=== PATIENT | female | born 1985 | race Caucasian/White ===

== ENCOUNTER 2021-01-03 12:50 | Outpatient (REF) | payer OTHER, SELFPAY ==
[2021-01-03 13:55] LABS: Basophils Percent Auto 0.2 % (0-2); Eosinophils Absolute Auto 0.1 X10*3/uL (0.0-0.4); Eosinophils Percent Auto 1.4 % (0-4); Hematocrit 37.8 % (37-47); Hemoglobin 12.5 g/dl (12.0-16.0); Imm Gran Abs Auto 0.01 X10*3/uL (0.00-0.03); Imm Gran Pct Auto 0.2 % (0.0-0.4); Lymphocytes Percent Auto 36.4 % (20-40); MANUAL DIFF FLAG NO; Mean Corpuscular HGB Conc 33.1 g/dl (31.0-35.0); Mean Corpuscular Hemoglobin 29.2 pg (27.0-33.0); Mean Corpuscular Volume 88.3 fL (80-98); Mean Platelet Volume 10.6 fL (9.4-12.3); Monocytes Absolute Auto 0.8 X10*3/uL (0.1-1.2); Monocytes Percent Auto 13.8 % (2-11); Neutrophils Absolute Auto 2.7 X10*3/uL (2.0-8.3); Platelet Count 281 X10*3/uL (160-400); Red Blood Count 4.28 X10*6/uL (4.20-5.50); Red Cell Distribution Width 11.9 % (11.0-16.0); White Blood Count 5.6 X10*3/uL (4.8-10.8)
[2021-01-03 14:30] LABS: Alanine Aminotransferase 56 U/L (0-31); Albumin Level 3.9 g/dL (3.5-5.0); Alkaline Phosphatase 77 U/L (39-117); Anion Gap 14 (12-20); Aspartate Amino Transferase 49 U/L (5-31); Bilirubin Total 0.4 mg/dL (0.0-1.0); Blood Urea Nitrogen 10 mg/dL (9-16); Calcium 9.1 mg/dL (8.4-10.2); Carbon Dioxide 20 mmol/L (22-29); Chloride 107 mmol/L (96-108); Cholesterol 210 mg/dL; Estimated Glomerular Filt Rate > 60; Glucose Fasting 90 mg/dL (60-99); HDL Cholesterol 59 mg/dL; LDL Cholesterol Calculated 111 mg/dl; Potassium 4.5 mmol/L (3.3-5.1); Sodium 136 mmol/L (135-145); Total Protein 7.5 g/dL (6.5-8.0); Triglycerides 203 mg/dL
[2021-01-04 17:02] LABS: HCV RNA PCR Qn 249000 IU/mL (NOT DETECTED)
[2021-01-07 18:12] LABS: HCV Genotype LiPA 1a
== END 2021-01-03 12:51 | disposition home or self-care (01) ==
LOC: HO.LAB 12:50
PROVIDERS: PCP Internal Medicine; Visit Provider Internal Medicine
DX: Z00.00 Encounter for general adult medical examination without abnormal findings (principal); B19.20 Unspecified viral hepatitis C without hepatic coma; F32.89 Other specified depressive episodes; Z72.0 Tobacco use; Z79.891 Long term (current) use of opiate analgesic
CPT/HCPCS: 36415; 80053; 80061; 85025; 87522; 87902

== ENCOUNTER 2021-04-16 19:29 | Emergency (ER) | payer OTHER, SELFPAY | END 2021-04-16 20:17 | disposition left against medical advice (07) | PROVIDERS: Emergency Provider Emergency Medicine | DX: S61.419A Laceration without foreign body of unspecified hand, initial encounter (principal); X58.XXXA Exposure to other specified factors, initial encounter; Y93.9 Activity, unspecified; Y92.9 Unspecified place or not applicable; Y99.9 Unspecified external cause status ==

== ENCOUNTER 2023-11-29 01:22 | Inpatient (IN) | payer OTHER, SELFPAY ==
--- NOTE | ~2023-11-29 | CT_ITS ---
EXAMINATION: CT ABDOMEN AND PELVIS WITHOUT CONTRAST CLINICAL INFORMATION: Question contraband COMPARISON: None available. TECHNIQUE: Multidetector volumetric imaging was performed from the superior aspect of the liver through the pubic symphysis. Sagittal and coronal reformatted images were obtained on the technologist's workstation. This CT examination was performed using dose optimization techniques as appropriate, variously including the following: *Automated exposure control *Adjustment of mA and/or kV according to patient size (this includes techniques or standardized protocols for targeted exams where dose is matched to indication/reason for exam; i.e. extremities or head) *Use of iterative reconstruction technique DLP: 365 mGy-cm FINDINGS: LUNG BASES: The visualized lung bases are unremarkable. LIVER, GALLBLADDER, AND BILIARY TREE: The liver is normal in size, shape, and attenuation. No focal hepatic lesion or biliary ductal dilatation is present. The gallbladder is unremarkable with no evidence of radiopaque gallstones, gallbladder wall thickening, or obvious pericholecystic inflammatory changes. PANCREAS: Unremarkable. SPLEEN: Unremarkable. ADRENAL GLANDS: Unremarkable. KIDNEYS AND URETERS: The kidneys are normal in size, shape, and attenuation. No hydronephrosis, hydroureter, or calculi seen. No perinephric stranding. BLADDER: Unremarkable. GASTROINTESTINAL TRACT: Stomach is unremarkable and filled with stomach contents. The small bowel are unremarkable. The appendix is unremarkable. Large amount of retained stool seen throughout the entire colon. No bowel wall thickening or inflammatory stranding. No radiopaque foreign bodies seen within the colon ABDOMINAL WALL: No significant hernia is appreciated. LYMPH NODES: Normal. VASCULAR: Unremarkable. PELVIC VISCERA: The uterus and adnexa are unremarkable. OSSEOUS STRUCTURES: Unremarkable. CT/CT abdomen pelvis wo IV con IMPRESSION: 1. No acute process. No radiopaque foreign bodies seen within the colon. 2. Large amount of retained stool seen throughout the colon.
[2023-11-29 02:59] VITALS: BP 110/76; BP 112/85; PULSE 73; PULSE 81; RESP 16; TEMP 36.7; O2SAT 98; O2SAT 99; BMI 21.2
--- OUTSIDE RECORDS SUMMARY | 2023-11-29 03:03 | XMS_ITS | Continuity of Care Document ---
Author Organization [facility] Address [address] [place] [address]- Care Team Providers Care Africana Studies Professor Name Role Phone Not on Staff, PCP Primary Care Physician Unavail able Encounter [facility] [place] Date(s): 12/21/19 - 02/13/[address] [address]- [facility] Attending Physician: Not on Staff, Attending MD Allergies, Adverse Reactions, Alerts Substance Reaction Severity Status NKA Active Immunizations Given and Recorded Vaccine Date Status Refusal Reason tetanus/diphtheria/pertussis, acel(Tdap) 02/13/10 Given Medications Flagyl 500 mg oral tablet 1 tablet = 500 mg, By Mouth, 2 times a day, do not drink alcohol, # 14 tablet, 0 Refills, Maintenance, 11/27/19 17:04:00 EDT, [id number], 160.02, cm, 11/20/19 15:30:00 EDT, Height, 50.4, kg, 11/20/19 15:30:00 EDT, Dry Weight Start Date: 11/27/19 Stop Date: 12/04/19 Status: Ordered Methadone = 90 mg, By Mouth, Daily, 0 Refills, Maintenance, 11/04/19 14:57:00 EDT, Partial fill upon patient request Start Date: 11/04/19 Status: Ordered Nicoderm C-Q Clear 14 mg/24 hr transdermal film, extended release 1 patch, Topically, Daily, # 30 patch, 0 Refills, Maintenance, 11/20/19 16:36:00 EDT, Patch, [id number], 160.02, cm, 11/20/19 15:30:00 EDT, Height, 50.4, kg, 11/20/19 15:30:00 EDT, Dry Weight Start Date: 11/20/19 Status: Ordered Multivitamins with Vitamin B Complex, Vitamin C, Minerals and L- Methylfolate oral capsule 1 capsule, By Mouth, Daily, # 90 capsule, 3 Refills, Maintenance, 11/20/19 16:35:00 EDT, Capsule, [id number], 1 capsule By Mouth Daily, 160.02, cm, 11/20/19 15:30:00 EDT, Height, 50.4, kg, 11/20/19 15:30:00 EDT, Dry Weight Start Date: 11/20/19 Status: Ordered Plus Iron oral tablet 1 tablet, By Mouth, Daily, # 30 tablet, 11 Refills, Maintenance, 10/20/19 16:56:00 EDT, Tablet, [id number], 1 tablet By Mouth Daily Start Date: 10/20/19 Status: Ordered terconazole topical 0.4% cream See Instructions, 1 application Vaginally at night, # 45 Gm, 1 Refills, Maintenance, for 7 days, 12/04/19 17:27:00 EDT, [id number], 1 application Vaginally at night, 160.02, cm, 11/20/19 15:30:00 EDT, Height, 50.4, kg, 11/20/19 15:30:00 EDT, D... Start Date: 12/04/19 Status: Ordered Wellbutrin XL 150 mg/24 hours oral tablet, extended release 1 tablet = 150 mg, By Mouth, Every 24 hours, # 30 tablet, 0 Refills, Maintenance, 02/02/20 8:56:00 EDT, [id number], 160.02, cm, 12/18/19 13:04:00 EDT, Height, 53.4, kg, 12/18/19 13:04:00 EDT,Dry Weight Start Date: 02/02/20 Status: Ordered Problem List Condition Effective Dates Status Health Status Inform ant Anxiety(Confirmed) Active History of depression(Confirmed) Active Hepatitis C antibody positiv e in blood(Confirmed) Active Methadone maintenance treatm ent affecting , antepartum(Confirmed) Active History of opioid abuse(Confirmed) Active Methadone dependence(Confirmed) Active Social History Social History Type Response Smoking Status 5-9 cigarettes (betw een 1/4 to 1/2 pack)/day in last 30 days; Tobacco user in household: No; Other: FOB smokes, both trying to cut down; entered on: 11/04/19 Sex
--- OUTSIDE RECORDS SUMMARY | 2023-11-29 03:03 | XMS_ITS | Continuity of Care Document ---
Author Organization [facility] Address [address] [place] [id number]- Care Team Providers Care Photogrammetric Stereo Compiler Name Role Phone Not on Staff, PCP Primary Care Physician Unavail able Encounter [facility] [place] Date(s): 03/14/20 - 06/15/20 [facility] and [address] [address]- Attending Physician: Not on Staff, Attending MD Admitting Physician: Ronni Kirk MD Referring Physician: Crystal Farmer CNM Allergies, Adverse Reactions, Alerts Substance Reaction Severity Status NKA Active Immunizations Given and Recorded Vaccine Date Status Refusal Reason tetanus/diphtheria/pertussis, acel(Tdap) 1 03/30/20 Given tetanus/diphtheria/pertussis, acel(Tdap) 02/13/10 Given 1Result Comment: [facility] 33739-998-99 Medications buPROPion 150 mg/24 hours (XL) oral tablet, extended release See Instructions, PLEASE SEE ATTACHED FOR DETAILED DIRECTIONS, # 30 tablet, 0 Refills, Maintenance,[id number], 30, PLEASE SEE ATTACHED FOR DETAILED DIRECTIONS, 160, cm, 06/03/20 9:54:00 EST, Height, 57.6, kg, 05/03/20 22:11:00 EST, Dry Weight Start Date: 06/08/20 Status: Ordered buPROPion 300 mg/24 hours (XL) oral tablet, extended release 1 tablet, By Mouth, Daily, DO NOT CRUSH OR CHEW. TAKE WITH 150 MG FOR TOTAL OF 450 MG, # 30 tablet,0 Refills, Maintenance, 06/08/20 9:14:00 EST, [id number], 160, cm, 06/03/20 9:54:00 EST, Height, 57.6, kg, 05/03/20 22:11:00 EST, Dry Weight Start Date: 06/08/20 Status: Ordered Depo-Provera Contraceptive 150 mg/mL intramuscular suspension 1 mL = 150 mg, Intramuscular, Every 3 months, # 1 mL, 2 Refills, Maintenance, 05/17/20 14:23:00 EST, Suspension, [facility], Partial fill upon patient request if the prescription is for a schedule II opioid drug., 160, cm, 05/06/20 17... Start Date: 05/17/20 Status: Ordered FLUoxetine (Eqv-Prozac) 10 mg oral tablet = 20 mg, By Mouth, Daily, # 45 tablet, 0 Refills, Maintenance, 06/15/20 19:59:00 EST, [id number], 160, cm, 06/03/20 9:54:00 EST, Height, 57.6, kg, 05/03/20 22:11:00 EST, Dry Weight Start Date: 06/15/20 Status: Ordered Methadone = 155 mg, By Mouth, Daily, 0 Refills, Maintenance, 11/04/19 14:57:00 EDT, Partial fill upon patientrequest Start Date: 11/04/19 Status: Ordered Nicoderm C-Q Clear 14 mg/24 hr transdermal film, extended release 1 patch, Topically, Daily, # 30 patch, 0 Refills, Maintenance, 11/20/19 16:36:00 EDT, Patch, [facility][id number], 160.02, cm, 11/20/19 15:30:00 EDT, Height, 50.4, kg, 11/20/19 15:30:00 EDT, Dry Weight Start Date: 11/20/19 Status: Ordered Multivitamins with Vitamin B Complex, Vitamin C, Minerals and L- Methylfolate oral capsule 1 capsule, By Mouth, Daily, # 90 capsule, 3 Refills, Maintenance, 11/20/19 16:35:00 EDT, Capsule, [facility]/pharm[facility] #[id number], 1 capsule By Mouth Daily, 160.02, cm, 11/20/19 15:30:00 EDT, Height, 50.4, kg, 11/20/19 15:30:00 EDT, Dry Weight Start Date: 11/20/19 Status: Ordered Plus Iron oral tablet 1 tablet, By Mouth, Daily, # 30 tablet, 11 Refills, Maintenance, 10/20/19 16:56:00 EDT, Tablet, [id number], 1 tablet By Mouth Daily Start Date: 10/20/19 Status: Ordered Vistaril pamoate 50 mg oral capsule 1 capsule = 50 mg, By Mouth, 4 times a day, PRN for anxiety, PRN at bedtime, # 40 capsule, 0 Refills, Maintenance, 05/03/20 22:31:00 EST, Capsule, Partial fill upon patient request if the prescription is for a schedule II opioid drug. Start Date: 05/03/20 Status: Ordered Problem List Condition Effective Dates Status Health Status Inform ant Anxiety(Confirmed) Active Depression(Confirmed) Active History of depression(Confirmed) Active H/O prolonged Q-T interval o n ECG(Confirmed) Active Hepatitis C antibody positiv e in blood(Confirmed) Active Methadone maintenance treatm ent affecting , antepartum(Confirmed) Active History of opioid abuse(Confirmed) Active Methadone dependence(Confirmed) Active Pruritus of (Confirmed) Active Social History Social History Type Response Smoking Status 5-9 cigarettes (betw een 1/4 to 1/2 pack)/day in last 30 days; Tobacco user in household: No; Other: FOB smokes, both trying to cut down; entered on: 11/04/19 Sex
--- OUTSIDE RECORDS SUMMARY | 2023-11-29 03:03 | XMS_ITS | Continuity of Care Document ---
[facility] Address [address] [place] [address]- Care Team Providers Care Coding Clerks Supervisor Name Role Phone Not on Staff, PCP Primary Care Physician Unavail able Encounter [facility] Date(s): 03/14/20 - 06/04/20 [facility] and [address] [address]- Attending Physician: Emi Corcoran CNM Admitting Physician: Emi Corcoran CNM Referring Physician: Crystal Farmer CNM Allergies, Adverse Reactions, Alerts Substance Reaction Severity Status NKA Active Immunizations Given and Recorded Vaccine Date Status Refusal Reason tetanus/diphtheria/pertussis, acel(Tdap) 1 03/30/20 Given tetanus/diphtheria/pertussis, acel(Tdap) 02/13/10 Given 1Result Comment: [facility] [id number] Medications Depo-Provera Contraceptive 150 mg/mL intramuscular suspension 1 mL = 150 mg, Intramuscular, Every 3 months, # 1 mL, 2 Refills, Maintenance, 05/17/20 14:23:00 EST, Suspension, [facility], Partial fill upon patient request if the prescription is for a schedule II opioid drug., 160, cm, 05/06/20 17... Start Date: 05/17/20 Status: Ordered FLUoxetine 10 mg oral capsule See Instructions, 1 capsule By Mouth Daily, after 2 weeks increase to 2 capsule daily (20mg), # 45 capsule, Refills 0, Tot. Refills 0, Maintenance, 05/17/20 14:19:00 EST, Instructions Replace Required Details, [facility] Start Date: 05/17/20 Status: Ordered Methadone = 155 mg, By Mouth, Daily, 0 Refills, Maintenance, 11/04/19 14:57:00 EDT, Partial fill upon patientrequest Start Date: 11/04/19 Status: Ordered Nicoderm C-Q Clear 14 mg/24 hr transdermal film, extended release 1 patch, Topically, Daily, # 30 patch, 0 Refills, Maintenance, 11/20/19 16:36:00 EDT, Patch, [facility][id number], 160.02, cm, 11/20/19 15:30:00 EDT, Height, [...] opioid drug. Start Date: 05/03/20 Status: Ordered Wellbutrin XL 150 mg/24 hours oral tablet, extended release 1 tablet = 150 mg, By Mouth, Every 24 hours, do not crush or chew Take with Wellbutrin XL 300 for total of 450, # 30 tablet, 0 Refills, Maintenance, 05/17/20 14:21:00 EST, ER Tablet, [id number], Partial fill upon patient request if the prescr... Start Date: 05/17/20 Status: Ordered Wellbutrin XL 300 mg/24 hours oral tablet, extended release 1 tablet = 300 mg, By Mouth, Daily, do not crush or chew Take with Wellbutrin XL 150 for total of 450, # 30 tablet, 0 Refills, Maintenance, 05/17/20 14:21:00 EST, ER Tablet, [id number], Partial fill upon patient request if the prescription is... Start Date: 05/17/20 Status: Ordered Problem List Condition Effective Dates [...]
--- OUTSIDE RECORDS SUMMARY | 2023-11-29 03:03 | XMS_ITS | Continuity of Care Document ---
Author Organization [facility] Address [address] [place] [address], [address] [place] [address]- Care Team Providers Care Auto Design Detailer Name Role Phone Not on Staff, PCP Primary Care Physician Unavail able Encounter [facility] Date(s): 10/22/19 - 11/21/19 [facility] [address] [facility] [place] [address]- [facility] Attending Physician: AdmShaun hunter Admitting Physician: AdmtrShaun Referring Physician: Admtr, Ar8 Allergies, Adverse Reactions, Alerts Substance Reaction Severity Status NKA Active Immunizations Given and Recorded Vaccine Date Status Refusal Reason tetanus/diphtheria/pertussis, acel(Tdap) 02/13/10 Given Medications Methadone = 90 mg, By Mouth, Daily, [...] Mouth Daily Start Date: 10/20/19 Status: Ordered Problem List Condition Effective Dates [...]
--- OUTSIDE RECORDS SUMMARY | 2023-11-29 03:03 | XMS_ITS | Continuity of Care Document ---
Author Organization [facility] Address [address] [place] [address]- Care Team Providers Care Travel Insurance Agent Name Role Phone Not on Staff, PCP Primary Care Physician Unavail able [place] [facility] 05/16/[place] - 07/06/[address] [address]- Attending Physician: Not on Staff, Attending MD Allergies, Adverse Reactions, Alerts Substance Reaction Severity Status NKA Active Immunizations Given and Recorded Vaccine Date Status Refusal Reason tetanus/diphtheria/pertussis, acel(Tdap) 1 03/30/20 Given tetanus/diphtheria/pertussis, acel(Tdap) 02/13/10 Given 1Result Comment: [facility] 49720-605-92 Medications buPROPion 150 mg/24 hours (XL) oral tablet, extended release See Instructions, PLEASE SEE ATTACHED FOR DETAILED DIRECTIONS, # 30 tablet, 0 Refills, Maintenance,[id number], 30, PLEASE SEE ATTACHED FOR DETAILED DIRECTIONS, 160, cm, 06/03/20 9:54:00 EST, Height, 57.6, kg, 05/03/20 22:11:00 EST, Dry Weight Start Date: 06/08/20 Status: Ordered buPROPion 300 mg/24 hours (XL) oral tablet, extended release 1 tablet, By Mouth, Daily, DO NOT CRUSH OR CHEW. TAKE WITH 150 MG FOR TOTAL OF 450 MG, # 30 tablet,0 Refills, Maintenance, 06/08/20 9:14:00 EST, [facility], 160, cm, 06/03/20 9:54:00 EST, Height, 57.6, kg, 05/03/20 22:11:00 EST, Dry Weight Start Date: 06/08/20 Status: Ordered Depo-Provera Contraceptive 150 mg/mL intramuscular suspension 1 mL = 150 mg, Intramuscular, Every 3 months, # 1 mL, 2 Refills, Maintenance, 05/17/20 14:23:00 EST, Suspension, [facility], Partial fill upon patient request if the prescription is for a schedule II opioid drug., 160, cm, 05/06/20 17... Start Date: 05/17/20 Status: Ordered FLUoxetine (Eqv-Prozac) 10 mg oral tablet = 20 mg, By Mouth, Daily, # 45 tablet, 0 Refills, Maintenance, 06/15/20 19:59:00 EST, [facility], 160, cm, 06/03/20 9:54:00 EST, Height, 57.6, [...] 0 Refills, Maintenance, 11/20/19 16:36:00 EDT, Patch, [id number], 160.02, cm, 11/20/19 15:30:00 EDT, Height, [...]
--- OUTSIDE RECORDS SUMMARY | 2023-11-29 03:03 | XMS_ITS | Continuity of Care Document ---
Author Organization [facility] Address [address] [place] [address]- Care Team Providers Care Director Pediatric Name Role Phone Not on Staff, PCP Primary Care Physician Unavail able Encounter [facility] Date(s): 03/14/20 - 05/11/20 [facility] and [address] [address] Attending Physician: Twila Webster CNM Admitting Physician: Twila Webster CNM Referring Physician: Crystal Farmer CNM Allergies, Adverse Reactions, Alerts Substance Reaction Severity Status NKA Active Immunizations Given and Recorded Vaccine Date Status Refusal Reason tetanus/diphtheria/pertussis, acel(Tdap) 1 03/30/20 Given tetanus/diphtheria/pertussis, acel(Tdap) 02/13/10 Given 1Result Comment: [facility] [id number] Medications Methadone = 155 mg, By Mouth, Daily, [...] 11 Refills, Maintenance, 10/20/19 16:56:00 EDT, Tablet, [id number], 1 tablet By Mouth Daily Start [...] 450, # 30 tablet, 0 Refills, Maintenance, 04/15/20 17:01:00 EST, ER Tablet, [facility][id number], Partial fill upon patient request if the prescr... Start Date: 04/15/20 Status: Ordered Wellbutrin XL 300 mg/24 hours oral tablet, extended release 1 tablet = 300 mg, By Mouth, Daily, do not crush or chew Take with Wellbutrin XL 150 for total of 450, # 30 tablet, 0 Refills, Maintenance, 04/15/20 17:01:00 EST, ER Tablet, [id number], Partial fill upon patient request if the prescription is... Start Date: 04/15/20 Status: Ordered Problem List Condition Effective Dates [...]
--- OUTSIDE RECORDS SUMMARY | 2023-11-29 03:03 | XMS_ITS | Continuity of Care Document ---
Author Organization [facility] Address [address] [place] [address], [address] [place] [address]- Care Team Providers Care Tile Inspector Name Role Phone Not on Staff, PCP Primary Care Physician Unavail able Encounter [facility] Date(s): 02/22/20 - 02/29/20 [facility] [address] [facility] [place] [address]- [facility] Attending Physician: Daniela Sánchez MD Referring Physician: Giovana Cash CNM Allergies, Adverse Reactions, Alerts Substance Reaction Severity Status NKA Active Immunizations Given and Recorded Vaccine Date Status Refusal Reason tetanus/diphtheria/pertussis, acel(Tdap) 02/13/10 Given Medications Actigall 300 mg oral capsule 300 mg, 1, capsule, By Mouth, 3 times a day, # 90 capsule, Refills 3, Tot. Refills 3, Maintenance, 02/22/20 18:06:00 EDT, [facility] to [facility], [id number], 160.02, cm, 02/19/20 11:40:00 EDT, Height, 55.7, kg, 02/05/20 14:18:00 EDT,... Start Date: 02/22/20 Status: Ordered Benadryl 25 mg oral capsule 1 capsule = 25 mg, By Mouth, 3 times a day, PRN for itching, # 30 capsule, 1 Refills, Maintenance, 02/19/20 12:17:00 EDT, Capsule, [id number], 160.02, cm, 02/19/20 11:40:00 EDT, Height, 55.7,kg, 02/05/20 14:18:00 EDT, Dry Weight Start Date: 02/19/20 Status: Ordered Flagyl 500 mg oral tablet 1 tablet [...] EDT,Dry Weight Start Date: 02/02/20 Status: Ordered Wellbutrin XL 300 mg/24 hours oral tablet, extended release 1 tablet = 300 mg, By Mouth, Daily, # 30 tablet, 0 Refills, Maintenance, 02/19/20 12:00:00 EDT, ER Tablet, [id number], 160.02, cm, 02/19/20 11:40:00 EDT, Height, 55.7, kg, 02/05/20 14:18:00 EDT, Dry Weight Start Date: 02/19/20 Status: Ordered Problem List Condition Effective Dates [...]
--- OUTSIDE RECORDS SUMMARY | 2023-11-29 03:03 | XMS_ITS | Continuity of Care Document ---
Author [facility] Address [address] [place] [address]- Care Team Providers Care Telehealth Nurse Educator Name Role Phone Not on Staff, PCP Primary Care Physician Unavail able Encounter [facility] Date(s): 11/27/19 - 12/27/19 [facility] [address] [address]- [facility] Allergies, Adverse Reactions, Alerts Substance Reaction Severity [...] EDT, D... Start Date: 12/04/19 Status: Ordered Problem List Condition Effective Dates [...]
--- OUTSIDE RECORDS SUMMARY | 2023-11-29 03:03 | XMS_ITS | Continuity of Care Document ---
Author [facility] Address [address] [address]- Care Team Providers Care Softball Coach Name Role Phone Not on Staff, PCP Primary Care Physician Unavail able Encounter [facility] Date(s): 03/11/20 - [facility] [address] [place] [address]- Attending Physician: Not on Staff, Attending MD Admitting Physician: Ronni Kirk MD Referring Physician: Crystal Farmer CNM Allergies, Adverse Reactions, Alerts Substance Reaction Severity Status NKA Active Immunizations Given and Recorded Vaccine Date Status Refusal Reason tetanus/diphtheria/pertussis, acel(Tdap) 1 03/30/20 Given tetanus/diphtheria/pertussis, acel(Tdap) 02/13/10 Given 1Result Comment: [facility] [id number] Medications Actigall 300 mg oral capsule 300 [...] tablet, 0 Refills, Maintenance, 11/27/19 17:04:00 EDT, [id number], 160.02, cm, 11/20/19 15:30:00 EDT, Height, 50.4, kg, 11/20/19 15:30:00 EDT, Dry Weight Start Date: 11/27/19 Stop Date: 12/04/19 Status: Ordered Methadone = 155 mg, By [...] Refills, Maintenance, 10/20/19 16:56:00 EDT, Tablet, [id number], 1 tablet By Mouth Daily Start Date: 10/20/19 Status: Ordered terconazole topical 0.4% cream See Instructions, 1 application Vaginally at night, # 45 Gm, 1 Refills, Maintenance, for 7 days, 12/04/19 17:27:00 EDT, [id number], 1 application Vaginally at night, 160.02, [...] Maintenance, 04/15/20 17:01:00 EST, ER Tablet, [id number], Partial fill upon patient request if the prescr... Start Date: 04/15/20 Status: Ordered Wellbutrin XL 150 mg/24 hours oral tablet, extended release 1 tablet = 150 mg, By Mouth, Every 24 hours, # 30 tablet, 0 Refills, Maintenance, 02/02/20 8:56:00 EDT, [id number], 160.02, cm, 12/18/19 13:04:00 EDT, Height, 53.4, kg, 12/18/19 13:04:00 EDT,Dry Weight Start Date: 02/02/20 Status: Ordered Wellbutrin XL 300 mg/24 hours oral tablet, extended release 1 tablet = 300 mg, By Mouth, Daily, # 30 tablet, 0 Refills, Maintenance, 02/19/20 12:00:00 EDT, ER Tablet, [id number], 160.02, cm, 02/19/20 11:40:00 EDT, Height, 55.7, kg, 02/05/20 14:18:00 EDT, Dry Weight Start Date: 02/19/20 Status: Ordered Wellbutrin XL 300 mg/24 hours oral tablet, extended release 1 tablet = 300 mg, By Mouth, Daily, do not crush or chew Take with Wellbutrin XL 150 for total of 450, # 30 tablet, 0 Refills, Maintenance, 04/15/20 17:01:00 EST, ER Tablet, [id number], Partial fill upon patient request if the [...]
--- OUTSIDE RECORDS SUMMARY | 2023-11-29 03:03 | XMS_ITS | Continuity of Care Document ---
Author Organization [facility] Address [address] [place] [address]- Care Team Providers Care Community Health Program Coordinator Name Role Phone Not on Staff, PCP Primary Care Physician Unavail able [facility]counter [facility] Date(s): 07/20/20 - 08/19/20 [facility] [address] [address]- Allergies, Adverse Reactions, Alerts Substance Reaction Severity Status NKA Active Immunizations Given and Recorded Vaccine Date Status Refusal Reason tetanus/diphtheria/pertussis, acel(Tdap) 1 03/30/20 Given tetanus/diphtheria/pertussis, acel(Tdap) 02/13/10 Given 1Result Comment: [facility] [id number] Medications Adderall XR 10 mg oral capsule, extended release 1 capsule = 10 mg, By Mouth, Daily in AM, # 30 capsule, 0 Refills, Maintenance, 07/26/20 17:25:00 EDT, [facility]/pharmacy #1130, Partial fill upon patient request if the prescription is for a schedule II opioid drug., 1 capsule By Mouth Daily in AM, 160, cm... Start Date: 07/26/20 Status: Ordered buPROPion 150 mg/24 hours (XL) oral tablet, extended release See Instructions, PLEASE SEE ATTACHED FOR DETAILED DIRECTIONS, # 30 tablet, 2 Refills, 07/26/20 15:28:00 EDT, [facility], 30, PLEASE SEE ATTACHED FOR DETAILED DIRECTIONS, 160, cm, 06/03/20 9:54:00 EST, Height, 57.6, kg, 05/03/20 22:11:00 EST,... Start Date: 07/26/20 Status: Ordered buPROPion 300 mg/24 hours (XL) oral tablet, extended release 1 tablet, By Mouth, Daily, DO NOT CRUSH OR CHEW. TAKE WITH 150 MG FOR TOTAL OF 450 MG, # 30 tablet,2 Refills, Maintenance, 07/26/20 15:28:00 EDT, [facility]/pharmacy #1130, 160, cm, 06/03/20 9:54:00 EST, Height, 57.6, kg, 05/03/20 22:11:00 EST, Dry Weight Start Date: 07/26/20 Status: Ordered Depo-Provera Contraceptive 150 mg/mL intramuscular suspension 1 mL = 150 mg, Intramuscular, Every 3 months, # 1 mL, 2 Refills, Maintenance, 05/17/20 14:23:00 EST, Suspension, [facility], Partial fill upon patient request if the prescription is for a schedule II opioid drug., 160, cm, 05/06/20 17... Start Date: 05/17/20 Status: Ordered FLUoxetine (Eqv-Prozac) 10 mg oral tablet = 20 mg, By Mouth, Daily, # 45 tablet, 2 Refills, Maintenance, 07/26/20 15:28:00 EDT, [facility], 160, cm, 06/03/20 9:54:00 EST, Height, 57.6, kg, 05/03/20 22:11:00 EST, Dry Weight Start Date: 07/26/20 Status: Ordered Loestrin 21 06/01 20 mcg-1 mg oral tablet 1 tablet, By Mouth, Daily, # 28 tablet, 2 Refills, Maintenance, 07/26/20 15:28:00 EDT, Tablet, [facility]/pharmacy #1130, Partial fill upon patient request if the prescription is for a schedule II opioid drug., 1 tablet By Mouth Daily, 160, cm, 06/03/20 9:54... Start Date: 07/26/20 Status: Ordered Methadone = 155 mg, By Mouth, Daily, 0 Refills, Maintenance, 11/04/19 14:57:00 EDT, Partial fill upon patientrequest Start Date: 11/04/19 Status: Ordered Nicoderm C-Q Clear 14 mg/24 hr transdermal film, extended release 1 patch, Topically, Daily, # 30 patch, 0 Refills, Maintenance, 11/20/19 16:36:00 EDT, Patch, [facility]/pharmacy #[id number], 160.02, cm, 11/20/19 15:30:00 EDT, Height, 50.4, kg, 11/20/19 15:30:00 EDT, Dry Weight Start Date: 11/20/19 Status: Ordered Plan B One-Step 1.5 mg oral tablet 1.5 mg, 1, tablet, By Mouth, Once, # 1 tablet, Refills 0, Tot. Refills 0, Soft Stop, 08/01/20 16:04:00 EDT, [id number] Partial fill upon patient request if the prescription is for a schedule II opioid drug.,... Start Date: 08/01/20 Status: Ordered Multivitamins with Vitamin B Complex, Vitamin C, Minerals and L- Methylfolate oral capsule 1 capsule, By Mouth, Daily, # 90 capsule, 3 Refills, Maintenance, 11/20/19 16:35:00 EDT, Capsule, [facility]/pharmacy #2339, 1 capsule By Mouth Daily, 160.02, cm, 11/20/19 15:30:00 EDT, Height, 50.4, kg, 11/20/19 15:30:00 EDT, Dry Weight Start Date: 11/20/19 Status: Ordered Plus Iron oral tablet 1 tablet, By Mouth, Daily, # 30 tablet, 11 Refills, Maintenance, 10/20/19 16:56:00 EDT, Tablet, [facility]/pharmacy #2339, 1 tablet By Mouth Daily Start [...]
--- OUTSIDE RECORDS SUMMARY | 2023-11-29 03:03 | XMS_ITS | Continuity of Care Document ---
Author Organization [facility] Address [address] [place] [address]- Care Team Providers Care Diffusion Operator Name Role Phone Not on Staff, PCP Primary Care Physician Unavail able [facility] Date(s): 04/15/20 - 06/10/20 [facility] [address] [place] [address]- Attending Physician: Not on Staff, Attending MD Referring Physician: Giovana Cash CNM Allergies, Adverse Reactions, Alerts Substance Reaction Severity Status NKA Active Immunizations Given and Recorded Vaccine Date Status Refusal Reason tetanus/diphtheria/pertussis, acel(Tdap) 1 03/30/20 Given tetanus/diphtheria/pertussis, acel(Tdap) 02/13/10 Given 1Result Comment: [facility] 66765-146-79 Medications buPROPion 150 mg/24 hours (XL) oral tablet, extended release See Instructions, PLEASE SEE ATTACHED FOR DETAILED DIRECTIONS, # 30 tablet, 0 Refills, Maintenance,[id number], 30, PLEASE SEE ATTACHED FOR DETAILED DIRECTIONS, 160, cm, 06/03/20 9:54:00 EST, Height, 57.6, kg, 05/03/20 22:11:00 EST, Dry Weight Start Date: 06/08/20 Status: Ordered buPROPion 300 mg/24 hours (XL) oral tablet, extended release 1 tablet, By Mouth, Daily, DO NOT CRUSH OR CHEW. TAKE WITH 150 MG FOR TOTAL OF 450 MG, # 30 tablet,0 Refills, Maintenance, 06/08/20 9:14:00 EST, [facility], 160, cm, 06/03/20 9:54:00 EST, Height, 57.6, kg, 05/03/20 22:11:00 EST, Dry Weight Start Date: 06/08/20 Status: Ordered Depo-Provera Contraceptive 150 mg/mL intramuscular suspension 1 mL = 150 mg, Intramuscular, Every 3 months, # 1 mL, 2 Refills, Maintenance, 05/17/20 14:23:00 EST, Suspension, [facility], Partial fill upon patient [...] 0 Refills, Maintenance, 11/20/19 16:36:00 EDT, Patch, [facility]/pharmacy #2339, 160.02, cm, 11/20/19 15:30:00 EDT, Height, [...]
--- OUTSIDE RECORDS SUMMARY | 2023-11-29 03:03 | XMS_ITS | Continuity of Care Document ---
Author Organization [facility] Address [address] [place] [address]- Care Team Providers Care Regional Account Manager Name Role Phone Not on Staff, PCP Primary Care Physician Unavail able [place] [facility] [place](s): 10/19/20 - 11/18/20 [facility] and [address] [address] Allergies, Adverse Reactions, Alerts Substance Reaction Severity Status NKA Active Immunizations Given and Recorded Vaccine Date Status Refusal Reason tetanus/diphtheria/pertussis, acel(Tdap) 1 03/30/20 Given tetanus/diphtheria/pertussis, acel(Tdap) 02/13/10 Given 1Result Comment: [facility] 67563-589-77 Medications Adderall XR 25 mg oral capsule, extended release 1 capsule = 25 mg, By Mouth, Daily in AM, dose increase, # 30 capsule, 0 Refills, Maintenance, 11/18/20 13:44:00 EDT, [facility], Partial fill upon patient request if the prescription is for a schedule II opioid drug., 1 capsule By Mouth Daily... Start Date: 11/18/20 Status: Ordered buPROPion 300 mg/24 hours (XL) oral tablet, extended release 1 tablet, By Mouth, Daily, DO NOT CRUSH OR CHEW. TAKE WITH 150 MG FOR TOTAL OF 450 MG, # 30 tablet,2 Refills, Maintenance, 11/18/20 13:43:00 EDT, [facility], 160, cm, 11/18/20 13:21:00 EDT, Height, 57.6, kg, 05/03/20 22:11:00 EST, Dry Weight Start Date: 11/18/20 Status: Ordered FLUoxetine 40 mg oral capsule 1 capsule = 40 mg, By Mouth, Daily, # 30 capsule, 0 Refills, Maintenance, 11/18/20 13:44:00 EDT, Capsule, [facility], Partial fill upon patient request if the prescription is for a schedule II opioid drug., 160, cm, 11/18/20 13:21:00 EDT, [facility]... Start Date: 11/18/20 Status: Ordered Methadone = 155 mg, By Mouth, Daily, 0 Refills, Maintenance, 11/04/19 14:57:00 EDT, Partial fill upon patientrequest Start Date: 11/04/19 Status: Ordered Nicoderm C-Q Clear 14 mg/24 hr transdermal film, extended release 1 patch, Topically, Daily, # 30 patch, 0 Refills, Maintenance, 11/20/19 16:36:00 EDT, Patch, [facility]/pharmacy #2339, 160.02, cm, 11/20/19 15:30:00 EDT, Height, 50.4, kg, 11/20/19 15:30:00 EDT, Dry Weight Start Date: 11/20/19 Status: Ordered Plan B One-Step 1.5 mg oral tablet 1.5 mg, 1, tablet, By Mouth, Once, # 1 tablet, Refills 0, Tot. Refills 0, Soft Stop, 08/01/20 16:04:00 EDT, Route to Pharmacy Electronically, [facility]/pharmacy #[id number], Partial fill upon patient request if the prescription is for a schedule II opioid drug.,... Start Date: 08/01/20 Status: Ordered Multivitamins with Vitamin B Complex, Vitamin C, Minerals and L- Methylfolate oral capsule 1 capsule, By Mouth, Daily, # 90 capsule, 3 Refills, Maintenance, 11/18/20 13:43:00 EDT, Capsule, [facility], 1 capsule By Mouth Daily, 160, cm, 11/18/20 13:21:00 EDT, Height, 57.6, kg, 05/03/20 22:11:00 EST, Dry Weight Start Date: 11/18/20 Status: Ordered Vistaril pamoate 50 mg oral [...]
--- OUTSIDE RECORDS SUMMARY | 2023-11-29 03:03 | XMS_ITS | Continuity of Care Document ---
Author Organization [facility] Address [address] [place] [address], [address] [place] [address]- Care Team Providers Care Nurse Emergency Room Name Role Phone Not on Staff, PCP Primary Care Physician Unavail able Encounter [facility] Date(s): 01/01/20 - 01/08/20 [facility] [address], [address] [place] [address]- [facility] Attending Physician: Rachel Sesay MD Referring Physician: Giovana Cash CNM Allergies, [...] hours, # 30 tablet, 0 Refills, Maintenance, 12/29/19 11:44:00EDT, [id number], 160.02, cm, 12/18/19 13:04:00 EDT, Height, 53.4, kg, 12/18/19 13:04:00 EDT, Dry Weight Start Date: 12/29/19 Status: Ordered Problem List Condition Effective Dates [...]
--- OUTSIDE RECORDS SUMMARY | 2023-11-29 03:03 | XMS_ITS | Continuity of Care Document ---
Author Organization [facility] Address [address] [place] [address]- Care Team Providers Care Accounting Methods Analyst Name Role Phone Not on Staff, PCP Primary Care Physician Unavail able Encounter [facility] Date(s): 04/08/20 - 05/14/20 [facility] [address] [address]- Attending Physician: Giovana Cash CNM Admitting Physician: Giovana Cash CNM Referring Physician: Giovana Cash CNM Allergies, Adverse Reactions, Alerts Substance Reaction Severity Status NKA Active Immunizations Given and Recorded Vaccine Date Status Refusal Reason tetanus/diphtheria/pertussis, acel(Tdap) 1 03/30/20 Given tetanus/diphtheria/pertussis, acel(Tdap) 02/13/10 Given 1Result Comment: [facility] [id number] Medications Methadone = 155 mg, By Mouth, [...]
--- OUTSIDE RECORDS SUMMARY | 2023-11-29 03:03 | XMS_ITS | Continuity of Care Document ---
Author Organization [facility] Sulaiman Lemus n's [facility] Address [address] [place] [address], [address] [place] [address]- Care Team Providers Care General Warehouse Associate Name Role Phone Not on Staff, PCP Primary Care Physician Unavail able En[place] [facility] Date(s): 01/23/22 - 02/22/22 [facility] Jerez[facility] [address] [facility], [address] [place] [address]- Allergies, Adverse Reactions, Alerts No Known Allergies Immunizations Given and Recorded Vaccine Date Status Refusal Reason tetanus/diphtheria/pertussis, acel(Tdap) 1 03/30/20 Given tetanus/diphtheria/pertussis, acel(Tdap) 02/13/10 Given 1Result Comment: [facility] [id number] Medications Adderall XR 20 mg oral capsule, extended release 1 capsule = 20 mg, By Mouth, Daily in AM, # 30 capsule, 0 Refills, Maintenance, 02/13/22 14:16:00 EDT, [facility]/pharmacy #[id number], Partial fill upon patient request if the prescription is for a schedule II opioid drug., 160, cm, 11/18/20 13:21:00 EDT, Height,... Start Date: 02/13/22 Status: Ordered FLUoxetine 40 mg oral capsule 1 capsule = 40 mg, By Mouth, Daily, # 30 capsule, 0 Refills, Maintenance, 02/13/22 14:19:00 EDT, Capsule, Partial fill upon patient request if the prescription is for a schedule II opioid drug. Start Date: 02/13/22 Status: Ordered Methadone = 100 mg, By Mouth, Daily, 0 Refills, Maintenance, 11/04/19 14:57:00 EDT, Partial fill upon patientrequest Start Date: 11/04/19 Status: Ordered Nexplanon 68 mg subcutaneous implant 1 each = 68 mg, Subcutaneous Infusion, Once, # 1 each, 0 Refills, Soft Stop, 01/31/21 13:13:00 EDT,[facility], Partial fill upon patient request if the prescription is for a schedule II opioid drug., 160, cm, 11/18/20 13:21:00 EDT,... Start Date: 01/31/21 Status: Ordered Wellbutrin XL 150 mg/24 hours oral tablet, extended release 1 tablet = 150 mg, By Mouth, Every 24 hours, 0 Refills, Maintenance, 02/13/22 14:19:00 EDT, Partialfill upon patient request if the prescription is for a schedule II opioid drug. Start Date: 02/13/22 Status: Ordered Wellbutrin XL 300 mg/24 hours oral tablet, extended release 1 tablet = 300 mg, By Mouth, Every 24 hours, 0 Refills, Maintenance, 02/13/22 14:19:00 EDT, Partialfill upon patient request if the prescription is for a schedule II opioid drug. Start Date: 02/13/22 Status: Ordered Problem List Condition Confirmation Course Effective Dates Status Health St atus Informant Anxiety Confirmed Active Depression Confirmed Active History of depression Confirmed Active H/O prolonged Q-T interval on ECG Confirmed Active Hepatitis C antibody positive in blood Confirmed Active Methadone maintenance treatment affecting , antepartum Confirmed Active History of opioid abuse Confirmed Active Methadone dependence Confirmed Active Pruritus of Confirmed Active Social History Social History Type Response Smoking Status 5-9 cigarettes (betw een 1/4 to 1/2 pack)/day in last 30 days; Tobacco user in household: No; Other: FOB smokes, both trying to cut down; entered on: 11/04/19 Sex Patient Care team information Personnel Name: Not on Staff, PCP
--- OUTSIDE RECORDS SUMMARY | 2023-11-29 03:03 | XMS_ITS | Continuity of Care Document ---
Author Organization [facility] Address [address] [place] [address]- Care Team Providers Care Ip Attorney Name Role Phone Not on Staff, PCP Primary Care Physician Unavail able En[facility] Date(s): 03/14/20 - 06/08/20 [facility] and [address] [address]- Attending Physician: Not on Staff, Attending MD Admitting Physician: Ronni Kirk MD Referring Physician: Crystal Farmer CNM Allergies, Adverse Reactions, Alerts Substance Reaction Severity Status NKA Active Immunizations Given and Recorded Vaccine Date Status Refusal Reason tetanus/diphtheria/pertussis, acel(Tdap) 1 03/30/20 Given tetanus/diphtheria/pertussis, acel(Tdap) 02/13/10 Given 1Result Comment: [facility] 58284-177-94 Medications buPROPion 150 mg/24 hours (XL) oral tablet, extended release See Instructions, PLEASE SEE ATTACHED FOR DETAILED DIRECTIONS, # 30 tablet, 0 Refills, Maintenance,[facility], 30, PLEASE SEE ATTACHED FOR DETAILED DIRECTIONS, 160, cm, 06/03/20 9:54:00 EST, Height, 57.6, kg, 05/03/20 22:11:00 EST, Dry Weight Start Date: 06/08/20 Status: Ordered buPROPion 300 mg/24 hours (XL) oral tablet, extended release 1 tablet, By Mouth, Daily, DO NOT CRUSH OR CHEW. TAKE WITH 150 MG FOR TOTAL OF 450 MG, # 30 tablet,0 Refills, Maintenance, 06/08/20 9:14:00 EST, [facility], 160, cm, 06/03/20 9:54:00 EST, Height, 57.6, kg, 05/03/20 22:11:00 EST, Dry Weight Start Date: 06/08/20 Status: Ordered Depo-Provera Contraceptive 150 mg/mL intramuscular suspension 1 mL = 150 mg, Intramuscular, Every 3 months, # 1 mL, 2 Refills, Maintenance, 05/17/20 14:23:00 EST, Suspension, [facility], Partial fill upon patient [...] 11 Refills, Maintenance, 10/20/19 16:56:00 EDT, Tablet, [facility]/pharmacy #[id number], 1 tablet By Mouth Daily Start [...]
--- OUTSIDE RECORDS SUMMARY | 2023-11-29 03:03 | XMS_ITS | Continuity of Care Document ---
Author Organization [facility] Address [address] [place] [address], [address] [place] [address]- Care Team Providers Care Marketing Communications Coordinator Name Role Phone Not on Staff, PCP Primary Care Physician Unavail able En[place] [facility] Date(s): 04/29/20 - 05/29/20 [facility] Sparks[facility] [address] [facility], [address] [place] [address]- Attending Physician: Shaun Raman Admitting Physician: Shaun Raman Referring Physician: AdmtrShaun Allergies, Adverse Reactions, Alerts Substance Reaction Severity Status NKA Active Immunizations Given and Recorded Vaccine Date Status Refusal Reason tetanus/diphtheria/pertussis, acel(Tdap) 1 03/30/20 Given tetanus/diphtheria/pertussis, acel(Tdap) 02/13/10 Given 1Result Comment: [facility] [id number] Medications Depo-Provera Contraceptive 150 mg/mL intramuscular suspension 1 mL = 150 mg, Intramuscular, Every 3 months, # 1 mL, 2 Refills, Maintenance, 05/17/20 14:23:00 EST, Suspension, [facility], Partial fill upon patient [...] 0 Refills, Maintenance, 11/20/19 16:36:00 EDT, Patch, [facility]/pharmacy #[id number], 160.02, cm, 11/20/19 15:30:00 [...]
--- OUTSIDE RECORDS SUMMARY | 2023-11-29 03:03 | XMS_ITS | Continuity of Care Document ---
Author Organization [facility] Address [address] [place] [address]- Care Team Providers Care Airplane Charter Clerk Name Role Phone Not on Staff, PCP Primary Care Physician Unavail able [facility] Date(s): 02/12/20 - 03/13/20 [facility] and [address] [address]- [facility] Allergies, Adverse Reactions, Alerts Substance Reaction Severity Status NKA Active Immunizations Given and Recorded Vaccine Date Status Refusal Reason tetanus/diphtheria/pertussis, acel(Tdap) 02/13/10 Given Medications Actigall 300 mg oral capsule 300 mg, 1, capsule, By Mouth, 3 times a day, # 90 capsule, Refills 3, Tot. Refills 3, Maintenance, 02/22/20 18:06:00 EDT, Route to Pharmacy Electronically, [facility]/pharmacy #[id number], 160.02, cm, 02/19/20 11:40:00 EDT, Height, [...]
--- OUTSIDE RECORDS SUMMARY | 2023-11-29 03:03 | XMS_ITS | Continuity of Care Document ---
Author Organization [facility] Sulaiman Lemus n's [facility] Address [address] [place] [address], [address] [place] [address]- Care Team Providers Care Gas Operations Analyst Name Role Phone Not on Staff, PCP Primary Care Physician Unavail able [place] [facility] Date(s): 04/29/20 - 05/06/20 [facility]aiman Jerezs [facility] [address] [facility], [address] [place], [place] [address] Attending Physician: Rachel Sesay MD Referring Physician: Giovana Cash CNM Allergies, Adverse Reactions, Alerts Substance Reaction Severity Status NKA Active Immunizations Given and Recorded Vaccine Date Status Refusal Reason tetanus/diphtheria/pertussis, acel(Tdap) 1 03/30/20 Given tetanus/diphtheria/pertussis, acel(Tdap) 02/13/10 Given 1Result Comment: [facility] [id number] Medications Methadone = 155 mg, By Mouth, [...] 11 Refills, Maintenance, 10/20/19 16:56:00 EDT, Tablet, [facility]/pharmacy #[id number], 1 tablet By Mouth Daily [...] Refills, Maintenance, 04/15/20 17:01:00 EST, ER Tablet, [facility]/pharmacy #[id number], Partial fill upon patient request if [...]
--- OUTSIDE RECORDS SUMMARY | 2023-11-29 03:03 | XMS_ITS | Continuity of Care Document ---
Author Organization [facility] Sulaiman Lemus n's [facility] Address [address] [place] [address], [address] [place] [address]- Care Team Providers Care Group Exercise Class Instructor Name Role Phone Not on Staff, PCP Primary Care Physician Unavail able [place] [facility] Date(s): 01/01/20 - 01/31/20 [facility]aiman Jerezs [facility] [address] [facility], [address] [place] [address]- [facility] Attending Physician: Shaun Raman Admitting Physician: Shaun [...]
--- OUTSIDE RECORDS SUMMARY | 2023-11-29 03:03 | XMS_ITS | Continuity of Care Document ---
Author Organization [facility] Address [address] [place] [address]- Care Team Providers Care Spot Sprayer Name Role Phone Not on Staff, PCP Primary Care Physician Unavail able Encounter [facility] Date(s): 03/30/20 - 04/29/20 [facility] [address] [place] [address]- Attending Physician: Admtr, Shaun Admitting Physician: Admtr, Ar8 Referring Physician: Admtr, Ar8 Allergies, Adverse Reactions, Alerts Substance Reaction Severity Status NKA Active Immunizations Given and Recorded Vaccine Date Status Refusal Reason tetanus/diphtheria/pertussis, acel(Tdap) 1 03/30/20 Given tetanus/diphtheria/pertussis, acel(Tdap) 02/13/10 Given 1Result Comment: [facility] 99385-394-16 Medications Actigall 300 mg oral capsule 300 [...] Refills, Maintenance, 04/15/20 17:01:00 EST, ER Tablet, [facility]/pharmacy #[id number], Partial fill upon patient request [...] Refills, Maintenance, 02/19/20 12:00:00 EDT, ER Tablet, [facility]/pharmacy #2339, 160.02, cm, 02/19/20 11:40:00 EDT, Height, 55.7, kg, 02/05/20 14:18:00 EDT, Dry Weight Start Date: 02/19/20 Status: Ordered Wellbutrin XL 300 mg/24 hours oral tablet, extended release 1 tablet = 300 mg, By Mouth, Daily, do not crush or chew Take with Wellbutrin XL 150 for total of 450, # 30 tablet, 0 Refills, Maintenance, 04/15/20 17:01:00 EST, ER Tablet, [facility]/pharmacy #[id number], Partial fill upon patient request [...]
--- OUTSIDE RECORDS SUMMARY | 2023-11-29 03:03 | XMS_ITS | Continuity of Care Document ---
Author Organization [facility] Address [address] [place] [address]- Care Team Providers Care Home Health Clinical Liaison Name Role Phone Not on Staff, PCP Primary Care Physician Unavail able [facility] Date(s): 04/15/20 - 05/22/20 [facility] [address] [place] [address]- Attending Physician: Not on Staff, Attending MD Referring Physician: Giovana Cash CNM Allergies, Adverse Reactions, Alerts Substance Reaction Severity Status NKA Active Immunizations Given and Recorded Vaccine Date Status Refusal Reason tetanus/diphtheria/pertussis, acel(Tdap) 1 03/30/20 Given tetanus/diphtheria/pertussis, acel(Tdap) 02/13/10 Given 1Result Comment: [facility] 54037-617-48 Medications Depo-Provera Contraceptive 150 mg/mL intramuscular suspension 1 mL = 150 mg, Intramuscular, Every 3 months, # 1 mL, 2 Refills, Maintenance, 05/17/20 14:23:00 EST, Suspension, [facility], Partial fill upon patient [...]
--- OUTSIDE RECORDS SUMMARY | 2023-11-29 03:03 | XMS_ITS | Continuity of Care Document ---
Author Organization [facility] Address [address] [place] [address]- Care Team Providers Care Associate Name Role Phone Not on Staff, PCP Primary Care Physician Unavail able [facility] Date[facility]): 12/18/19 - 01/17/20 [facility] [address] [place] [address]- [facility] Allergies, Adverse Reactions, Alerts Substance [...]
--- OUTSIDE RECORDS SUMMARY | 2023-11-29 03:03 | XMS_ITS | Continuity of Care Document ---
Author Organization [facility] Address [address] [place] [address]- Care Team Providers Care Sales And Marketing Coordinator Name Role Phone Not on Staff, PCP Primary Care Physician Unavail able [facility] Date(s): 05/09/20 - [facility] [address] [address]- Allergies, Adverse Reactions, Alerts Substance Reaction Severity Status NKA Active Immunizations Given and Recorded Vaccine Date Status Refusal Reason tetanus/diphtheria/pertussis, acel(Tdap) 1 03/30/20 Given tetanus/diphtheria/pertussis, acel(Tdap) 02/13/10 Given 1Result Comment: [facility] 52845-982-65 Medications buPROPion 150 mg/24 hours (XL) oral tablet, extended release See Instructions, PLEASE SEE ATTACHED FOR DETAILED DIRECTIONS, # 30 tablet, 0 Refills, [facility], 30, PLEASE SEE ATTACHED FOR DETAILED DIRECTIONS, 160, cm, 06/03/20 9:54:00 EST, Height, 57.6, kg, 05/03/20 22:11:00 EST, Dry Weight Start Date: 06/08/20 Status: Ordered buPROPion 300 mg/24 hours (XL) oral tablet, extended release 1 tablet, By Mouth, Daily, DO NOT CRUSH OR CHEW. TAKE WITH 150 MG FOR TOTAL OF 450 MG, # 30 tablet,0 Refills, Maintenance, 06/08/20 9:14:00 EST, [facility], 160, cm, 06/03/20 9:54:00 EST, Height, 57.6, kg, 05/03/20 22:11:00 EST, Dry Weight Start Date: 06/08/20 Status: Ordered Depo-Provera Contraceptive 150 mg/mL intramuscular suspension 1 mL = 150 mg, Intramuscular, Every 3 months, # 1 mL, 2 Refills, Maintenance, 05/17/20 14:23:00 EST, Suspension, [facility], Partial fill upon patient [...]
--- OUTSIDE RECORDS SUMMARY | 2023-11-29 03:04 | XMS_ITS | Continuity of Care Document ---
Author Organization [facility] Address [address] [place] [address]- Care Team Providers Care Associate Editor Name Role Phone Not on Staff, PCP Primary Care Physician Unavail able [facility] Date(s): 06/07/20 - [facility]07[facility] [address] [address]- Allergies, Adverse Reactions, Alerts Substance Reaction Severity Status NKA Active Immunizations Given and Recorded Vaccine Date Status Refusal Reason tetanus/diphtheria/pertussis, acel(Tdap) 1 03/30/20 Given tetanus/diphtheria/pertussis, acel(Tdap) 02/13/10 Given 1Result Comment: [facility] 78282-967-43 Medications buPROPion 150 mg/24 hours (XL) oral tablet, extended release See Instructions, PLEASE SEE ATTACHED FOR DETAILED DIRECTIONS, # 30 tablet, 0 Refills, [facility], 30, PLEASE SEE ATTACHED FOR DETAILED DIRECTIONS, 160, cm, 06/03/20 9:54:00 EST, Height, 57.6, kg, 05/03/20 22:11:00 EST, Dry Weight Start Date: 06/08/20 Status: Ordered buPROPion 300 mg/24 hours (XL) oral tablet, extended release 1 tablet, By Mouth, Daily, DO NOT CRUSH OR CHEW. TAKE WITH 150 MG FOR TOTAL OF 450 MG, # 30 tablet,0 Refills, Maintenance, 06/08/20 9:14:00 EST, [facility], 160, cm, 06/03/20 9:54:00 EST, Height, 57.6, kg, 05/03/20 22:11:00 EST, Dry Weight Start Date: 06/08/20 Status: Ordered Depo-Provera Contraceptive 150 mg/mL intramuscular suspension 1 mL = 150 mg, Intramuscular, Every 3 months, # 1 mL, 2 Refills, Maintenance, 05/17/20 14:23:00 EST, Suspension, [facility], Partial fill upon patient request if the prescription is for a schedule II opioid drug., 160, cm, 05/06/20 17... Start Date: 05/17/20 Status: Ordered FLUoxetine (Eqv-Prozac) 10 mg oral tablet = 20 mg, By Mouth, Daily, # 45 tablet, 0 Refills, Maintenance, 06/15/20 19:59:00 EST, [facility], 160, cm, 06/03/20 9:54:00 EST, Height, 57.6, [...] Refills, Maintenance, 11/20/19 16:36:00 EDT, Patch, [facility]/pharmacy #2339, 160.02, cm, 11/20/19 15:30:00 EDT, Height, [...]
--- OUTSIDE RECORDS SUMMARY | 2023-11-29 03:04 | XMS_ITS | Continuity of Care Document ---
Author Organization [facility] Address [address] [place] [address], [address] [place] [address]- Care Team Providers Care Onsite Case Manager Name Role Phone Aquilino DELEON, Maria Ta Primary Care Physician Encounter [facility] Date(s): 10/22/19 - 10/29/19 [facility] [address] [facility], [address] [place] [address]- [facility] Attending Physician: Rachel Sesay MD Referring Physician: Aquilino DELEON, Evie Allergies, Adverse Reactions, Alerts Substance Reaction Severity Status NKA Active Immunizations Given and Recorded Vaccine Date Status Refusal Reason tetanus/diphtheria/pertussis, acel(Tdap) 02/13/10 Given Medications clindamycin 150 mg oral capsule 1 capsule = 150 mg, By Mouth, Every 6 hours, # 28 capsule, 0 Refills, Maintenance, Capsule Start Date: 02/13/10 Stop Date: 02/20/10 Status: Ordered Plus Iron oral tablet 1 tablet, By Mouth, Daily, # 30 tablet, 11 Refills, Maintenance, 10/20/19 16:56:00 EDT, [facility]t, [facility], 1 tablet By Mouth Daily Start Date: 10/20/19 Status: Ordered
--- OUTSIDE RECORDS SUMMARY | 2023-11-29 03:04 | XMS_ITS | Continuity of Care Document ---
Author Organization [facility] Address [address] [place] [address]- Care Team Providers Care Oxygen Equipment Technician Name Role Phone Not on Staff, PCP Primary Care Physician Unavail able [facility] Date(s): 04/14/20 - 05/14/20 [facility] and [address] [address]- Allergies, Adverse Reactions, Alerts Substance Reaction Severity Status NKA Active Immunizations Given and Recorded Vaccine Date Status Refusal Reason tetanus/diphtheria/pertussis, acel(Tdap) 1 03/30/20 Given tetanus/diphtheria/pertussis, acel(Tdap) 02/13/10 Given 1Result Comment: [facility] [id number] Medications Methadone = 155 mg, By Mouth, [...] 11 Refills, Maintenance, 10/20/19 16:56:00 EDT, Tablet, [facility]/pharmacy #2339, 1 tablet By Mouth [...] Type Response Smoking Status 5-9 cigarettes (betw eethao 1/4 to 1/2 pack)/day in last 30 days; Tobacco user in household: No; Other: FOB smokes, both trying to cut down; entered on: 11/04/19 Sex
--- OUTSIDE RECORDS SUMMARY | 2023-11-29 03:04 | XMS_ITS | Patient Health Record ---
Author Organization [facility] Address [address], [place] [id number] Support Name Relationship Address Phone Jeny Mast Emergency Contact Unknown Romina Kimbrough Guarantor Unknown Unavailable REASON FOR REFERRAL No Information MEDICATIONS Medication SIG (Take, Route, Fr equency, Duration) Notes Start Date End Date Status traZODone 100 mg 1 tab(s) orally QHS for 30 day(s) 05/30/2012 Active Requip 0.5 mg 1 tab(s) orally QHS for 30 days Active IMMUNIZATIONS Vaccine Route Administration Date Status Comme nts PPD negative Unknown 04/19/2011 Administered Td Unknown 02/12/2011 Administered Pneumococcal Unknown 01/01/2011 Administered Fluarix ID Intradermal 05/03/2011 Administered SOCIAL HISTORY Sex Assigned At : Social History Observation Description Sex Assigned At Unknown PROBLEMS Problem Type ICD Code Onset Dates Problem Status W/U Status Risk SNOMED Code Notes Problem OPIOID ABUSE-UNSPEC (305.50) Active confirmed Nondependent opioid abuse (201182576) Problem Tobacco use disorder (305.1) Active confirmed Tobacco use (838765414) Problem Underweight BMI<19 (783.22) Active confirmed Underweight (526494412) Problem Insomnia (780.52) Active confirmed Insomnia (705658304) Problem MENTAL/BEHAVIOR PROB NOS (V40.9) Active confirmed Problem behavio r (378061190) Problem Restless leg syndrome (333.99) Active confirmed Restless legs syndrome (69046456) Problem Hepatitis C without hepatic coma, not otherwise specified (070.70) Active confirmed Viral hepatitis type C (07506413) PLAN OF TREATMENT No Information Insurance Providers Payer Name Payer Address Payer Phone Subscriber Number Group Number Insured Name Patient Relationship to Insured Coverage Start Date Coverage End Date [place] Standard [address] [place] [address] [id number] Romina Kimbrough Self - patient is the insured MEDICAL (GENERAL) HISTORY Medical History History ICD Code heroin abuse x 3 1/2 years. tobacco use disorder Hep C dx'd 2011 Surgical History Surgery Date(Month/Year) L hand middle finger tendon and nerve [place] 2010 Hospitalization History Reason Date(Month/Year) [facility] 04/13-04/19/2011 several detoxes in the past
--- OUTSIDE RECORDS SUMMARY | 2023-11-29 03:04 | XMS_ITS | Continuity of Care Document ---
Author Organization [facility] Address [address] [place] [address]- Care Team Providers Care Engine Generator Assembler Name Role Phone Not on Staff, PCP Primary Care Physician Unavail able [facility]): 02/01/20 - 03/02/[address] [address]- [facility] Allergies, Adverse Reactions, Alerts Substance Reaction Severity [...] tablet, 0 Refills, Maintenance, 02/02/20 8:56:00 EDT, [facility]/pharmacy #2339, 160.02, cm, 12/18/19 13:04:00 EDT, Height, 53.4, kg, 12/18/19 13:04:00 EDT,Dry Weight Start Date: 02/02/20 Status: Ordered Wellbutrin XL 300 mg/24 hours oral tablet, extended release 1 tablet = 300 mg, By Mouth, Daily, # 30 tablet, 0 Refills, Maintenance, 02/19/20 12:00:00 EDT, ER Tablet, [facility]/pharmacy #2339, 160.02, cm, 02/19/20 11:40:00 [...]
--- OUTSIDE RECORDS SUMMARY | 2023-11-29 03:04 | XMS_ITS | Continuity of Care Document ---
Author Organization [facility] Address [address] [place] [address]- Care Team Providers Care Histopath Tech Name Role Phone Not on Staff, PCP Primary Care Physician Unavail able [facility] Date[facility]s): 03/30/20 - 05/01/[address] [address]- Attending Physician: Giovana Cash CNM Admitting Physician: Giovana Cash CNM Referring Physician: Giovana Cash CNM Allergies, Adverse Reactions, Alerts Substance Reaction Severity Status NKA Active Immunizations Given and Recorded Vaccine Date Status Refusal Reason tetanus/diphtheria/pertussis, acel(Tdap) 1 03/30/20 Given tetanus/diphtheria/pertussis, acel(Tdap) 02/13/10 Given 1Result Comment: [facility] 27982-530-90 Medications Actigall 300 mg oral capsule 300 [...] Maintenance, for 7 days, 12/04/19 17:27:00 EDT, [facility]/pharmacy #2339, 1 application Vaginally at night, 160.02, [...] Refills, Maintenance, 04/15/20 17:01:00 EST, ER Tablet, [facility]/pharmacy #2339, Partial fill upon patient request if [...] Refills, Maintenance, 02/19/20 12:00:00 EDT, ER Tablet, [facility]/pharmacy #2339, 160.02, cm, 02/19/20 11:40:00 EDT, Height, 55.7, kg, 02/05/20 14:18:00 EDT, Dry Weight Start Date: 02/19/20 Status: Ordered Wellbutrin XL 300 mg/24 hours oral tablet, extended release 1 tablet = 300 mg, By Mouth, Daily, do not crush or chew Take with Wellbutrin XL 150 for total of 450, # 30 tablet, 0 Refills, Maintenance, 04/15/20 17:01:00 EST, ER Tablet, [facility]/pharmacy #2339, Partial fill upon patient request if [...]
--- OUTSIDE RECORDS SUMMARY | 2023-11-29 03:04 | XMS_ITS | Continuity of Care Document ---
Author Organization [facility] Address [address] [place] [address]- Care Team Providers Care Acquisitions Editor Name Role Phone Not on Staff, PCP Primary Care Physician Unavail able [facility] Date(s): 12/04/19 - 01/03/20 [facility] [address] [address]- [facility] Allergies, Adverse Reactions, Alerts Substance Reaction Severity [...]
--- OUTSIDE RECORDS SUMMARY | 2023-11-29 03:04 | XMS_ITS | Continuity of Care Document ---
Author Organization [facility] Address [address] [place] [address]- Care Team Providers Care Cinema Or Theatre Manager Name Role Phone Not on Staff, PCP Primary Care Physician Unavail able [facility] Date(s): 04/05/20 - 05/05/20 [facility] and [address] [address]- Allergies, Adverse Reactions, Alerts Substance Reaction Severity Status NKA Active Immunizations Given and Recorded Vaccine Date Status Refusal Reason tetanus/diphtheria/pertussis, acel(Tdap) 1 03/30/20 Given tetanus/diphtheria/pertussis, acel(Tdap) 02/13/10 Given 1Result Comment: [facility] 75518-658-67 Medications Actigall 300 mg oral capsule 300 mg, 1, capsule, By Mouth, 3 times a day, # 90 capsule, Refills 3, Tot. Refills 3, Maintenance, 02/22/20 18:06:00 EDT, Route to Pharmacy Electronically, [facility]/pharmacy #2339, 160.02, cm, 02/19/20 11:40:00 [...] Maintenance, for 7 days, 12/04/19 17:27:00 EDT, [facility]/pharmacy #2339, 1 application Vaginally at night, 160.02, cm, 11/20/19 15:30:00 EDT, Height, 50.4, kg, 11/20/19 15:30:00 EDT, D... Start Date: 12/04/19 Status: Ordered Vistaril pamoate 50 mg oral [...] Refills, Maintenance, 04/15/20 17:01:00 EST, ER Tablet, [facility]/pharmacy #2339, Partial fill upon patient request if the prescr... Start Date: 04/15/20 Status: Ordered Wellbutrin XL 150 mg/24 hours oral tablet, extended release 1 tablet = 150 mg, By Mouth, Every 24 hours, # 30 tablet, 0 Refills, Maintenance, 02/02/20 8:56:00 EDT, [facility]/pharmacy #2339, 160.02, cm, 12/18/19 13:04:00 EDT, Height, 53.4, kg, 12/18/19 13:04:00 EDT,Dry Weight Start Date: 02/02/20 Status: Ordered Wellbutrin XL 300 mg/24 hours oral tablet, extended release 1 tablet = 300 mg, By Mouth, Daily, # 30 tablet, 0 Refills, Maintenance, 02/19/20 12:00:00 EDT, ER Tablet, [facility]/pharmacy #2339, 160.02, cm, 02/19/20 11:40:00 [...] Maintenance, 04/15/20 17:01:00 EST, ER Tablet, [facility], Partial fill upon patient request if the [...]
--- OUTSIDE RECORDS SUMMARY | 2023-11-29 03:04 | XMS_ITS | Continuity of Care Document ---
Author Organization [facility] Address Unknown Care Team Providers Care College Director Name Role Phone Not on Staff, PCP Primary Care Physician Unavail able [facility] Date(s): 01/31/21 - 03/02/21 [facility] Allergies, Adverse Reactions, Alerts Substance Reaction Severity Status NKA Active Immunizations Given and Recorded Vaccine Date Status Refusal Reason tetanus/diphtheria/pertussis, acel(Tdap) 1 03/30/20 Given tetanus/diphtheria/pertussis, acel(Tdap) 02/13/10 Given 1Result Comment: [facility] 48174-600-20 Medications Adderall XR 25 mg oral capsule, extended release 1 capsule = 25 mg, By Mouth, Daily in AM, # 30 capsule, 0 Refills, Maintenance, 01/30/21 13:54:00 EDT, [facility]/pharmacy #1591, Partial fill upon patient request if the prescription is for a schedule II opioid drug., 1 capsule By Mouth Daily in AM, 160, cm... Start Date: 01/30/21 Status: Ordered buPROPion 300 mg/24 hours (XL) oral tablet, extended release 1 tablet, By Mouth, Daily, DO NOT CRUSH OR CHEW. TAKE WITH 150 MG FOR TOTAL OF 450 MG, # 30 tablet,2 Refills, Maintenance, 12/06/20 13:34:00 EDT, [facility], 160, cm, 11/18/20 13:21:00 EDT, Height, 57.6, kg, 05/03/20 22:11:00 EST, Dry Weight Start Date: 12/06/20 Status: Ordered FLUoxetine 40 mg oral capsule 1 capsule, By Mouth, Daily, # 30 capsule, 0 Refills, [facility], 160, cm, 11/18/20 13:21:00 EDT, Height, 57.6, kg, 05/03/20 22:11:00 EST, Dry Weight Start Date: 01/30/21 Status: Ordered Methadone = 155 mg, By Mouth, Daily, 0 Refills, Maintenance, 11/04/19 14:57:00 EDT, Partial fill upon patientrequest Start Date: 11/04/19 Status: Ordered Nexplanon 68 mg subcutaneous implant 1 each = 68 mg, Subcutaneous Infusion, Once, # 1 each, 0 Refills, Soft Stop, 01/31/21 13:13:00 EDT,[facility], Partial fill upon patient request if the prescription is for a schedule II opioid drug., 160, cm, 11/18/20 13:21:00 EDT,... Start Date: 01/31/21 Status: Ordered Nicoderm C-Q Clear 14 mg/24 hr transdermal film, extended release 1 patch, Topically, Daily, # 30 patch, 0 Refills, Maintenance, 11/20/19 16:36:00 EDT, Patch, [facility]/pharmacy #2339, 160.02, cm, 11/20/19 15:30:00 EDT, Height, 50.4, kg, 11/20/19 15:30:00 EDT, Dry Weight Start Date: 11/20/19 Status: Ordered Plan B One-Step 1.5 mg oral tablet 1.5 mg, 1, tablet, By Mouth, Once, # 1 tablet, Refills 0, Tot. Refills 0, Soft Stop, 08/01/20 16:04:00 EDT, Route to Pharmacy Electronically, [facility]/pharmacy #1130, Partial fill upon patient request if the prescription is for a schedule II opioid drug.,... Start Date: 08/01/20 Status: Ordered Multivitamins with Vitamin B Complex, Vitamin C, Minerals and L- Methylfolate oral capsule 1 capsule, By Mouth, Daily, # 90 capsule, 3 Refills, Maintenance, 12/06/20 13:34:00 EDT, Capsule, [facility], 1 capsule By Mouth Daily, 160, cm, 11/18/20 13:21:00 EDT, Height, 57.6, kg, 05/03/20 22:11:00 EST, Dry Weight Start Date: 12/06/20 Status: Ordered Vistaril pamoate 50 mg oral [...]
--- OUTSIDE RECORDS SUMMARY | 2023-11-29 03:04 | XMS_ITS | Continuity of Care Document ---
Author Organization [facility] Address [address] [place] [address]- Care Team Providers Care Signals Analyst Name Role Phone Not on Staff, PCP Primary Care Physician Unavail able [facility] 12[facility]22[facility]19 - [facility] [address] [address]- [facility] Allergies, Adverse Reactions, Alerts Substance Reaction [...] Response Smoking Status 5-9 cigarettes (betw een 05/16 to 05/14 pack)/day in last 30 days; Tobacco user in household: No; Other: FOB smokes, both trying to cut down; entered on: 11/04/19 Sex
--- OUTSIDE RECORDS SUMMARY | 2023-11-29 03:04 | XMS_ITS | Continuity of Care Document ---
Author Organization [facility] Address [address] [place] [address]- Care Team Providers Care Millwright Helper Name Role Phone Not on Staff, PCP Primary Care Physician Unavail able Encounter [facility] Date(s): 05/03/20 - 05/06/[address] [address]- Discharge Disposition: A-D/C Home Attending Physician: Bonnie Rangel MD Admitting Physician: Bonnie Rangel MD Referring Physician: Bonnie Rangel MD Allergies, Adverse Reactions, Alerts Substance Reaction Severity Status NKA Active Immunizations Given and Recorded Vaccine Date Status Refusal Reason tetanus/diphtheria/pertussis, acel(Tdap) 1 03/30/20 Given tetanus/diphtheria/pertussis, acel(Tdap) 02/13/10 Given 1Result Comment: [facility] 38192-924-10 Medications Acetaminophen Tablet 650 mg, Tablet, By Mouth, Every 4 hours, PRN for Pain , Mild, (1-3), may give 325mg per patient preference and re-dose with 325mg within 4 hours, if needed. Patient should only receive a total of 650mg of Acetaminophen every 4 hours., Routine, 05/04... Start Date: 05/04/20 Stop Date: 05/07/20 Status: Discontinued Ibuprofen Tablet 800 mg, Tablet, By Mouth, Every 8 hours, PRN for Pain , Moderate, (4-6), may give 400mg per patientpreference and re-dose with 400mg within 8 hours if needed. Patient should only receive a total of 800mg of Ibuprofen every 8 hours., Routine, 05/04/... Start Date: 05/04/20 Stop Date: 05/07/20 Status: Discontinued Methadone = 155 mg, By Mouth, Daily, 0 Refills, Maintenance, 11/04/19 14:57:00 EDT, Partial fill upon patientrequest Start Date: 11/04/19 Status: Ordered Methadone Liquid 80 mg, Solution, By Mouth, 05/06/20 17:00:00 EST Start Date: 05/06/20 Stop Date: 05/06/20 Status: Completed Nicoderm C-Q Clear 14 mg/24 hr transdermal film, extended release 1 patch, Topically, Daily, # 30 patch, 0 Refills, Maintenance, 11/20/19 16:36:00 EDT, Patch, [facility]/pharmacy #2339, 160.02, cm, 11/20/19 15:30:00 EDT, Height, 50.4, kg, 11/20/19 15:30:00 EDT, Dry Weight Start Date: 11/20/19 Status: Ordered Multivitamins with Vitamin B Complex, Vitamin C, Minerals and L- Methylfolate oral capsule 1 capsule, By Mouth, Daily, # 90 capsule, 3 Refills, Maintenance, 11/20/19 16:35:00 EDT, Capsule, [facility]/pharmacy #2339, 1 capsule By Mouth [...] Methadone dependence(Confirmed) Active Pruritus of (Confirmed) Active Vital Signs Most recent to oldest [Reference Range]: 1 2 3 4 Height 160 cm (05/06/20 4:30 PM) 160 cm (05/06/20 7:45 AM) 160 cm (05/06/20 12:02 AM) Weight 57.6 kg (05/03/20 10:27 PM) 57.6 kg (05/03/20 10:11 PM) Oxygen Saturation [94-100 %] 95 % (05/06/20 4:30 PM) 98 % (05/06/20 7:45 AM) 95 % (05/06/20 12:02 AM) Pulse Rate [55-90 bpm] 72 bpm (05/06/20 4:30 PM) 82 bpm (05/06/20 7:45 AM) 72 bpm (05/06/20 12:02 AM) Body Mass Index [18.5-24.99] 22.5 (05/03/20 10:11 PM) Blood Pressure [90-138/55-84 mm Hg] 130/80mm Hg (05/06/20 4:30 PM) 113/64mm Hg (05/06/20 7:45 AM) 120/69mm Hg (05/06/20 12:02 AM) Respiratory Rate [16-30 br/min] 18 br/min (05/06/20 5:22 PM) 18 br/min (05/06/20 4:30 PM) 18 br/min (05/06/20 2:47 PM) 18 br/min (05/06/20 2:47 PM) Temperature [96.8-100.4 DegF] 98.1 DegF (05/06/20 4:30 PM) 98 DegF (05/06/20 7:45 AM) 97.9 DegF (05/06/20 12:02 AM) Mode of Delivery (Oxygen) Room air (05/06/20 12:02 AM) Room air (05/05/20 6:00 AM) Room air (05/05/20 2:00 AM) Blood pressure sites Arm, left (05/06/20 12:02 AM) Arm, left (05/04/20 1:39 AM) Arm, right (05/03/20 10:11 PM) Temperature Route Oral (05/06/20 4:30 PM) Oral (05/06/20 7:45 AM) Oral (05/06/20 12:02 AM) Dry Weight 57.6 kg (05/03/20 10:11 PM) Social History Social History Type Response Smoking Status 5-9 cigarettes (betw een 1/4 to 1/2 pack)/day in last 30 days; Tobacco user in household: No; Other: FOB smokes, both trying to cut down; entered on: 11/04/19 Sex
--- OUTSIDE RECORDS SUMMARY | 2023-11-29 03:04 | XMS_ITS | Continuity of Care Document ---
Author Organization [facility] Address [address] [place] [address], [address] [place] [address]- Care Team Providers Care Warehouse Distribution Manager Name Role Phone Not on Staff, PCP Primary Care Physician Unavail able [place] [facility] [place] 04/15/20 - 05/22/20 [facility] [address] [facility], [address] [place] [address]- Attending Physician: Giovana Cash CNM Allergies, Adverse Reactions, Alerts Substance Reaction Severity Status NKA Active Immunizations Given and Recorded Vaccine Date Status Refusal Reason tetanus/diphtheria/pertussis, acel(Tdap) 1 03/30/20 Given tetanus/diphtheria/pertussis, acel(Tdap) 02/13/10 Given 1Result Comment: [facility] 69252-647-76 Medications Depo-Provera Contraceptive 150 mg/mL intramuscular suspension 1 mL = 150 mg, Intramuscular, Every 3 months, # 1 mL, 2 Refills, Maintenance, 05/17/20 14:23:00 EST, Suspension, [facility], Partial fill upon patient [...]
--- OUTSIDE RECORDS SUMMARY | 2023-11-29 03:04 | XMS_ITS | Continuity of Care Document ---
Author Organization [facility] Address Unknown Care Team Providers Care Laborer Tanbark Name Role Phone Not on Staff, PCP Primary Care Physician Unavail able Encounter [facility] Date(s): 01/31/21 - 03/02/21 [facility] Attending Physician: Shaun Raman Admitting Physician: Shaun Raman Referring Physician: Admtr, Collin8 Allergies, Adverse Reactions, Alerts Substance Reaction Severity Status NKA Active Immunizations Given and Recorded Vaccine Date Status Refusal Reason tetanus/diphtheria/pertussis, acel(Tdap) 1 03/30/20 Given tetanus/diphtheria/pertussis, acel(Tdap) 02/13/10 Given 1Result Comment: [facility] [id number] Medications Adderall XR 25 mg oral capsule, extended release 1 capsule = 25 mg, By Mouth, Daily in AM, # 30 capsule, 0 Refills, Maintenance, 01/30/21 13:54:00 EDT, [id number], Partial fill upon patient request if the [...] # 30 capsule, 0 Refills, [facility], 160, cm, 11/18/20 13:21:00 EDT, Height, 57.6, kg, 05/03/20 22:11:00 EST, Dry Weight Start Date: 01/30/21 Status: Ordered Methadone = 155 mg, By Mouth, Daily, 0 Refills, Maintenance, 11/04/19 14:57:00 EDT, Partial fill upon patientrequest Start Date: 11/04/19 Status: Ordered Nexplanon 68 mg subcutaneous implant 1 each = 68 mg, Subcutaneous Infusion, Once, # 1 each, 0 Refills, Soft Stop, 01/31/21 13:13:00 EDT,[facility], Partial fill upon patient request if the prescription is for a schedule II opioid drug., 160, cm, 11/18/20 13:21:00 EDT,... Start Date: 01/31/21 Status: Ordered Nicoderm C-Q Clear 14 mg/24 hr transdermal film, extended release 1 patch, Topically, Daily, # 30 patch, 0 Refills, Maintenance, 11/20/19 16:36:00 EDT, Patch, [facility]/pharmacy #[id number], 160.02, cm, 11/20/19 15:30:00 EDT, Height, 50.4, kg, 11/20/19 15:30:00 EDT, Dry Weight Start Date: 11/20/19 Status: Ordered Plan B One-Step 1.5 mg oral tablet 1.5 mg, 1, tablet, By Mouth, Once, # 1 tablet, Refills 0, Tot. Refills 0, Soft Stop, 08/01/20 16:04:00 EDT, Route to Pharmacy Electronically, [facility]/pharmacy #[id number], Partial fill upon patient request if the prescription is for a schedule II opioid drug.,... Start Date: 08/01/20 Status: Ordered Multivitamins with Vitamin B Complex, Vitamin C, Minerals and L- Methylfolate oral capsule 1 capsule, By Mouth, Daily, # 90 capsule, 3 Refills, Maintenance, 12/06/20 13:34:00 EDT, Capsule, [facility]/pharmacy #1130, 1 capsule By Mouth Daily, 160, [...]
--- OUTSIDE RECORDS SUMMARY | 2023-11-29 03:04 | XMS_ITS | Continuity of Care Document ---
Author Organization [facility] Address [address] [place] [address]- Care Team Providers Care Attendance Secretary Name Role Phone Not on Staff, PCP Primary Care Physician Unavail able [facility] Date(s): 11/26/19 - 12/26/19 [facility] [address] [address]- [facility] Allergies, Adverse Reactions, Alerts Substance [...]
--- OUTSIDE RECORDS SUMMARY | 2023-11-29 03:04 | XMS_ITS | Continuity of Care Document ---
Author Organization [facility] Address [address] [place] [address]- Care Team Providers Care Pediatric Pathologist Name Role Phone Not on Staff, PCP Primary Care Physician Unavail able Encounter [facility] Date(s): 06/16/20 - [facility] [address] [address]- Attending Physician: Shaun Raman Admitting Physician: Shaun Raman Referring Physician: AdmtrShaun Allergies, Adverse Reactions, Alerts Substance Reaction Severity Status NKA Active Immunizations Given and Recorded Vaccine Date Status Refusal Reason tetanus/diphtheria/pertussis, acel(Tdap) 1 03/30/20 Given tetanus/diphtheria/pertussis, acel(Tdap) 02/13/10 Given 1Result Comment: [facility] 51449-003-30 Medications buPROPion 150 mg/24 hours (XL) oral tablet, extended release See Instructions, PLEASE SEE ATTACHED FOR DETAILED DIRECTIONS, # 30 tablet, 0 Refills, Maintenance,[facility] STORE 51096, 30, PLEASE SEE ATTACHED FOR DETAILED DIRECTIONS, 160, cm, 06/03/20 9:54:00 EST, Height, 57.6, kg, 05/03/20 22:11:00 EST, Dry Weight Start Date: 06/08/20 Status: Ordered buPROPion 300 mg/24 hours (XL) oral tablet, extended release 1 tablet, By Mouth, Daily, DO NOT CRUSH OR CHEW. TAKE WITH 150 MG FOR TOTAL OF 450 MG, # 30 tablet,0 Refills, Maintenance, 06/08/20 9:14:00 EST, [facility] STORE 60967, 160, cm, 06/03/20 9:54:00 EST, Height, 57.6, kg, 05/03/20 22:11:00 EST, Dry Weight Start Date: 06/08/20 Status: Ordered Depo-Provera Contraceptive 150 mg/mL intramuscular suspension 1 mL = 150 mg, Intramuscular, Every 3 months, # 1 mL, 2 Refills, Maintenance, 05/17/20 14:23:00 EST, Suspension, [facility], Partial fill upon patient request if the prescription is for a schedule II opioid drug., 160, cm, 05/06/20 17... Start Date: 05/17/20 Status: Ordered FLUoxetine (Eqv-Prozac) 10 mg oral tablet = 20 mg, By Mouth, Daily, # 45 tablet, 0 Refills, Maintenance, 06/15/20 19:59:00 EST, [facility], 160, cm, 06/03/20 9:54:00 EST, Height, 57.6, [...] 0 Refills, Maintenance, 11/20/19 16:36:00 EDT, Patch, [facility]/pharmacy #2339, 160.02, cm, 11/20/19 15:30:00 EDT, [...] Refills, Maintenance, 10/20/19 16:56:00 EDT, Tablet, [id number], 1 tablet By Mouth Daily Start Date: [...]
--- OUTSIDE RECORDS SUMMARY | 2023-11-29 03:04 | XMS_ITS | Continuity of Care Document ---
Author Organization [facility] Address [address] [place] [address]- Care Team Providers Care Brake Lining Finisher Name Role Phone Not on Staff, PCP Primary Care Physician Unavail able Encounter [facility] Date(s): 06/14/20 - 07/14/20 [facility] and [address] [address]- Allergies, Adverse Reactions, Alerts Substance Reaction Severity Status NKA Active Immunizations Given and Recorded Vaccine Date Status Refusal Reason tetanus/diphtheria/pertussis, acel(Tdap) 1 03/30/20 Given tetanus/diphtheria/pertussis, acel(Tdap) 02/13/10 Given 1Result Comment: [facility] 59287-732-95 Medications buPROPion 150 mg/24 hours (XL) oral tablet, extended release See Instructions, PLEASE SEE ATTACHED FOR DETAILED DIRECTIONS, # 30 tablet, 0 Refills, [facility], 30, PLEASE SEE ATTACHED FOR DETAILED DIRECTIONS, 160, cm, 06/03/20 9:54:00 EST, Height, 57.6, kg, 05/03/20 22:11:00 EST, Dry Weight Start Date: 06/08/20 Status: Ordered buPROPion 300 mg/24 hours (XL) oral tablet, extended release 1 tablet, By Mouth, Daily, DO NOT CRUSH OR CHEW. TAKE WITH 150 MG FOR TOTAL OF 450 MG, # 30 tablet,0 Refills, Maintenance, 06/08/20 9:14:00 EST, [facility], 160, cm, 06/03/20 9:54:00 EST, Height, 57.6, kg, 05/03/20 22:11:00 EST, Dry Weight Start Date: 06/08/20 Status: Ordered Depo-Provera Contraceptive 150 mg/mL intramuscular suspension 1 mL = 150 mg, Intramuscular, Every 3 months, # 1 mL, 2 Refills, Maintenance, 05/17/20 14:23:00 EST, Suspension, [facility], Partial fill upon patient request if the prescription is for a schedule II opioid drug., 160, cm, 05/06/20 17... Start Date: 05/17/20 Status: Ordered FLUoxetine (Eqv-Prozac) 10 mg oral tablet = 20 mg, By Mouth, Daily, # 45 tablet, 0 Refills, Maintenance, 06/15/20 19:59:00 EST, [facility], 160, cm, 06/03/20 9:54:00 EST, Height, 57.6, [...] 0 Refills, Maintenance, 11/20/19 16:36:00 EDT, Patch, [facility]/pharmacy #2339, 160.02, cm, 11/20/19 15:30:00 EDT, [...]
--- OUTSIDE RECORDS SUMMARY | 2023-11-29 03:04 | XMS_ITS | Continuity of Care Document ---
Author Organization [facility] Address [address] [place] [address]- Care Team Providers Care Data Management Associate Name Role Phone Not on Staff, PCP Primary Care Physician Unavail able Encounter [facility] Date(s): 04/29/20 - 06/04/[address] [address]- Attending Physician: Giovana Cash CNM Admitting Physician: Giovana Cash CNM Referring Physician: Giovana Cash CNM Allergies, Adverse Reactions, Alerts Substance Reaction Severity Status NKA Active Immunizations Given and Recorded Vaccine Date Status Refusal Reason tetanus/diphtheria/pertussis, acel(Tdap) 1 03/30/20 Given tetanus/diphtheria/pertussis, acel(Tdap) 02/13/10 Given 1Result Comment: [facility] [id number] Medications Depo-Provera Contraceptive 150 mg/mL intramuscular suspension 1 mL = 150 mg, Intramuscular, Every 3 months, # 1 mL, 2 Refills, Maintenance, 05/17/20 14:23:00 EST, Suspension, [facility], Partial fill upon patient [...]
--- OUTSIDE RECORDS SUMMARY | 2023-11-29 03:04 | XMS_ITS | Continuity of Care Document ---
Author Organization [facility] Address [address] [place] [address]- Care Team Providers Care Information Technology Coordinator Name Role Phone Not on Staff, PCP Primary Care Physician Unavail able [facility] Date(s): 05/23/20 - 06/22/20 [facility] [address] [place] [address] Attending Physician: AdmShaun hunter Admitting Physician: Admtr, Collin8 Referring Physician: Admtr, Ar8 Allergies, Adverse Reactions, Alerts Substance Reaction Severity Status NKA Active Immunizations Given and Recorded Vaccine Date Status Refusal Reason tetanus/diphtheria/pertussis, acel(Tdap) 1 03/30/20 Given tetanus/diphtheria/pertussis, acel(Tdap) 02/13/10 Given 1Result Comment: [facility] [id number] Medications buPROPion 150 mg/24 hours (XL) oral tablet, extended release See Instructions, PLEASE SEE ATTACHED FOR DETAILED DIRECTIONS, # 30 tablet, 0 Refills, Maintenance,[facility] ST[facility] 91545, 30, PLEASE SEE ATTACHED FOR DETAILED DIRECTIONS, 160, cm, 06/03/20 9:54:00 EST, Height, 57.6, kg, 05/03/20 22:11:00 EST, Dry Weight Start Date: 06/08/20 Status: Ordered buPROPion 300 mg/24 hours (XL) oral tablet, extended release 1 tablet, By Mouth, Daily, DO NOT CRUSH OR CHEW. TAKE WITH 150 MG FOR TOTAL OF 450 MG, # 30 tablet,0 Refills, Maintenance, 06/08/20 9:14:00 EST, [facility], 160, cm, 06/03/20 9:54:00 EST, Height, 57.6, kg, 05/03/20 22:11:00 EST, Dry Weight Start Date: 06/08/20 Status: Ordered Depo-Provera Contraceptive 150 mg/mL intramuscular suspension 1 mL = 150 mg, Intramuscular, Every 3 months, # 1 mL, 2 Refills, Maintenance, 05/17/20 14:23:00 EST, Suspension, [facility], Partial fill upon patient request if the prescription is for a schedule II opioid drug., 160, cm, 05/06/20 17... Start Date: 05/17/20 Status: Ordered FLUoxetine (Eqv-Prozac) 10 mg oral tablet = 20 mg, By Mouth, Daily, # 45 tablet, 0 Refills, Maintenance, 06/15/20 19:59:00 EST, [facility], 160, cm, 06/03/20 9:54:00 EST, Height, 57.6, [...] 0 Refills, Maintenance, 11/20/19 16:36:00 EDT, Patch, [facility]/pharmacy #2339, 160.02, cm, 11/20/19 15:30:00 EDT, [...]
--- OUTSIDE RECORDS SUMMARY | 2023-11-29 03:04 | XMS_ITS | Continuity of Care Document ---
Author Organization [facility] Address [address] [place] [address]- Care Team Providers Care Metal Handler Name Role Phone Not on Staff, PCP Primary Care Physician Unavail able [facility] Date(s): 12/01/19 - 01/31/20 [facility] and [address] [address]- [facility] Attending Physician: Not on Staff, Attending MD Admitting Physician: Ronni Kirk MD Referring Physician: Goivana Cash CNM Allergies, Adverse Reactions, Alerts Substance [...]
--- OUTSIDE RECORDS SUMMARY | 2023-11-29 03:04 | XMS_ITS | Continuity of Care Document ---
Author Organization [facility] Address [address] [place] [address]- Care Team Providers Care Bunch Breaker Machine Operator Name Role Phone Not on Staff, PCP Primary Care Physician Unavail able Encounter [facility] Date(s): 10/17/23 - 11/16/[address] [address]- Attending Physician: AdmShaun hunter Admitting Physician: AdmtrShaun Referring Physician: Admtr, Ar8 Allergies, Adverse Reactions, Alerts No Known Allergies Immunizations Given and Recorded Vaccine Date Status Refusal Reason tetanus/diphtheria/pertussis, acel(Tdap) 1 03/30/20 Given tetanus/diphtheria/pertussis, acel(Tdap) 02/13/10 Given 1Result Comment: [facility] [id number] Medications ibuprofen 600 mg oral tablet 600 mg, 1, tablet, By Mouth, Every 6 hours, # 30 tablet, Refills 1, Tot. Refills 1, Maintenance, 10/17/23 12:08:00 EDT, Route to Pharmacy Electronically, [facility]/pharmacy #[id number], Partial fill upon patientrequest if the prescription is for a schedule II op... Start Date: 10/17/23 Status: Ordered Methadone = 100 mg, By Mouth, Daily, 0 Refills, Maintenance, 11/04/19 14:57:00 EDT, Partial fill upon patientrequest Start Date: 11/04/19 Status: Ordered miSOPROStol 200 mcg oral tablet See Instructions, Place 1 tabs between cheek and gums on EACH side, let dissolve for 30 min then swallow the rest with water. Please take this at 07:30 AM (3 hours prior to scheduled procedure), # 2 tablet, 0 Refills, Maintenance, 10/17/23 12:08:00... Start Date: 10/17/23 Status: Ordered ondansetron 4 mg oral tablet, disintegrating 1 tablet = 4 mg, By Mouth, Every 6 hours, PRN Nausea & Vomiting, # 12 tablet, 0 Refills, Maintenance, 10/17/23 12:08:00 EDT, [facility], [id number], Partial fill upon patient request if the prescription is for a schedule II opioid drug., 160, cm,... Start Date: 10/17/23 Status: Ordered Problem List Condition Confirmation Course [...] on: 11/04/19 Sex Patient Care team information Care Team Personnel Name: Not on Staff, PCP Position: S Physician (General Medicine) Member Role: PCP Care Team Related Persons Name: TRACY KEN Address: [employer] Address: home [address] [place] [address] Name: MARKUS KEN Address: [address] [place] [address] Name: TIBURCIO VASQUEZ Name: LOUIE BETANCOURT Address: home [address] [place] [address]
--- OUTSIDE RECORDS SUMMARY | 2023-11-29 03:04 | XMS_ITS | Continuity of Care Document ---
Author Organization [facility] Address [address] [place] [address]- Care Team Providers Care Injection Molder Name Role Phone Not on Staff, PCP Primary Care Physician Unavail able [facility]counter [facility] Date(s): 07/20/20 - 08/19/20 [facility] and [address] [address]- Allergies, Adverse Reactions, Alerts Substance Reaction Severity Status NKA Active Immunizations Given and Recorded Vaccine Date Status Refusal Reason tetanus/diphtheria/pertussis, acel(Tdap) 1 03/30/20 Given tetanus/diphtheria/pertussis, acel(Tdap) 02/13/10 Given 1Result Comment: [facility] [id number] Medications Adderall XR 10 mg oral capsule, extended release 1 capsule = 10 mg, By Mouth, Daily in AM, # 30 capsule, 0 Refills, Maintenance, 07/26/20 17:25:00 EDT, [id number], Partial fill upon patient [...] 30 tablet,2 Refills, Maintenance, 07/26/20 15:28:00 EDT, [facility]/pharmacy #1130, 160, cm, 06/03/20 9:54:00 EST, Height, 57.6, kg, 05/03/20 22:11:00 EST, Dry Weight Start Date: 07/26/20 Status: Ordered Depo-Provera Contraceptive 150 mg/mL intramuscular suspension 1 mL = 150 mg, Intramuscular, Every 3 months, # 1 mL, 2 Refills, Maintenance, 05/17/20 14:23:00 EST, Suspension, [facility], Partial fill upon patient [...] 2 Refills, Maintenance, 07/26/20 15:28:00 EDT, Tablet, [facility]/pharmacy #1130, Partial fill upon patient [...] 0 Refills, Maintenance, 11/20/19 16:36:00 EDT, Patch, [facility]/pharmacy #2339, 160.02, cm, 11/20/19 15:30:00 EDT, Height, 50.4, kg, 11/20/19 15:30:00 EDT, Dry Weight Start Date: 11/20/19 Status: Ordered Plan B One-Step 1.5 mg oral tablet 1.5 mg, 1, tablet, By Mouth, Once, # 1 tablet, Refills 0, Tot. Refills 0, Soft Stop, 08/01/20 16:04:00 EDT, [facility] Partial fill upon patient request if the prescription is for a schedule II opioid drug.,... Start Date: 08/01/20 Status: Ordered Multivitamins with Vitamin B Complex, Vitamin C, Minerals and L- Methylfolate oral capsule 1 capsule, By Mouth, Daily, # 90 capsule, 3 Refills, Maintenance, 11/20/19 16:35:00 EDT, Capsule, [facility]/pharmacy #2339, 1 capsule By Mouth Daily, 160.02, cm, 11/20/19 15:30:00 EDT, Height, 50.4, kg, 11/20/19 15:30:00 EDT, Dry Weight Start Date: 11/20/19 Status: Ordered Plus Iron oral tablet 1 tablet, By Mouth, Daily, # 30 tablet, 11 Refills, Maintenance, 10/20/19 16:56:00 EDT, Tablet, [facility]/pharmacy #2339, 1 tablet By Mouth [...]
--- OUTSIDE RECORDS SUMMARY | 2023-11-29 03:04 | XMS_ITS | Continuity of Care Document ---
Author Organization [facility] Address Unknown Care Team Providers Care Nurse Companion Name Role Phone Not on Staff, PCP Primary Care Physician Unavail able Encounter [facility] Date(s): 11/18/20 - 01/25/21 [facility] Attending Physician: Not on Staff, Attending MD Referring Physician: Ryan SALEH ASSEMBLER, Migue Méndez Allergies, Adverse Reactions, Alerts Substance Reaction Severity Status NKA Active Immunizations Given and Recorded Vaccine Date Status Refusal Reason tetanus/diphtheria/pertussis, acel(Tdap) 1 03/30/20 Given tetanus/diphtheria/pertussis, acel(Tdap) 02/13/10 Given 1Result Comment: [facility] [id number] Medications Adderall XR 25 mg oral capsule, extended release 1 capsule = 25 mg, By Mouth, Daily in AM, dose increase, # 30 capsule, 0 Refills, Maintenance, 12/06/20 13:34:00 EDT, [id number], Partial fill upon patient request if the prescription is for a schedule II opioid drug., 1 capsule By Mouth Daily... Start Date: 12/06/20 Status: Ordered buPROPion 300 mg/24 hours (XL) oral tablet, extended release 1 tablet, By Mouth, Daily, DO NOT CRUSH OR CHEW. TAKE WITH 150 MG FOR TOTAL OF 450 MG, # 30 tablet,2 Refills, Maintenance, 12/06/20 13:34:00 EDT, [facility], 160, cm, 11/18/20 13:21:00 EDT, Height, 57.6, kg, 05/03/20 22:11:00 EST, Dry Weight Start Date: 12/06/20 Status: Ordered FLUoxetine (Eqv-Prozac) 20 mg oral tablet 1 tablet, By Mouth, Daily, # 30 tablet, 1 Refills, Maintenance, 01/02/21 14:04:00 EDT, [facility]/pharmacy#2071, 160, cm, 11/18/20 13:21:00 EDT, Height, 57.6, kg, 05/03/20 22:11:00 EST, Dry Weight Start Date: 01/02/21 Status: Ordered Methadone = 155 mg, By [...] 08/01/20 16:04:00 EDT, Route to Pharmacy Electronically, [facility]/pharmacy #1130, Partial fill upon patient request if the prescription is for a schedule II opioid drug.,... Start Date: 08/01/20 Status: Ordered Multivitamins with Vitamin B Complex, Vitamin C, Minerals and L- Methylfolate oral capsule 1 capsule, By Mouth, Daily, # 90 capsule, 3 Refills, Maintenance, 12/06/20 13:34:00 EDT, Capsule, [facility]/pharmacy #1130, 1 capsule By Mouth Daily, 160, [...]
--- OUTSIDE RECORDS SUMMARY | 2023-11-29 03:04 | XMS_ITS | Continuity of Care Document ---
Author Organization [facility] Address [address] [place] [address]- Care Team Providers Care Travel Sales Consultant Name Role Phone Not on Staff, PCP Primary Care Physician Unavail able Encounter [facility] Date(s): 04/18/20 - 05/22/[address] [address]- Attending Physician: Giovana Cash CNM Admitting Physician: Giovana Cash CNM Referring Physician: Giovana Cash CNM Allergies, Adverse Reactions, Alerts Substance Reaction Severity Status NKA Active Immunizations Given and Recorded Vaccine Date Status Refusal Reason tetanus/diphtheria/pertussis, acel(Tdap) 1 03/30/20 Given tetanus/diphtheria/pertussis, acel(Tdap) 02/13/10 Given 1Result Comment: [facility] [id number] Medications Depo-Provera Contraceptive 150 mg/mL intramuscular suspension 1 mL = 150 mg, Intramuscular, Every 3 months, # 1 mL, 2 Refills, Maintenance, 05/17/20 14:23:00 EST, Suspension, [facility], Partial fill upon patient request [...]
--- OUTSIDE RECORDS SUMMARY | 2023-11-29 03:04 | XMS_ITS | Continuity of Care Document ---
Author Organization [facility] Address Unknown Care Team Providers Care Anode Machine Operator Name Role Phone Not on Staff, PCP Primary Care Physician Unavail able Encounter [facility] Date(s): 12/28/20 - 03/02/21 [facility] Attending Physician: Not on Staff, Attending MD Referring Physician: Not on Staff, Referring MD Allergies, Adverse Reactions, Alerts Substance Reaction Severity Status NKA Active Immunizations Given and Recorded Vaccine Date Status Refusal Reason tetanus/diphtheria/pertussis, acel(Tdap) 1 03/30/20 Given tetanus/diphtheria/pertussis, acel(Tdap) 02/13/10 Given 1Result Comment: [facility] 37369-393-22 Medications Adderall XR 25 mg oral capsule, extended release 1 capsule = 25 mg, By Mouth, Daily in AM, # 30 capsule, 0 Refills, Maintenance, 01/30/21 13:54:00 EDT, [id number], Partial fill upon patient request if the [...] Mouth, Daily, # 30 capsule, 0 Refills, [facility]27, 160, cm, 11/18/20 13:21:00 EDT, Height, 57.6, kg, 05/03/20 22:11:00 EST, Dry Weight Start Date: 01/30/21 Status: Ordered Methadone = 155 mg, By Mouth, Daily, 0 Refills, Maintenance, 11/04/19 14:57:00 EDT, Partial fill upon patientrequest Start Date: 11/04/19 Status: Ordered Nexplanon 68 mg subcutaneous implant 1 each = 68 mg, Subcutaneous Infusion, Once, # 1 each, 0 Refills, Soft Stop, 01/31/21 13:13:00 EDT,[facility], Partial fill upon patient request if the prescription is for a schedule II opioid drug., 160, cm, 11/18/20 13:21:00 EDT,... Start Date: 01/31/21 Status: Ordered Nicoderm C-Q Clear 14 mg/24 hr transdermal film, extended release 1 patch, Topically, Daily, # 30 patch, 0 Refills, Maintenance, 11/20/19 16:36:00 EDT, Patch, [facility]/pharmacy #2339, 160.02, cm, 11/20/19 15:30:00 EDT, Height, 50.4, kg, 11/20/19 15:30:00 EDT, Dry Weight Start Date: 11/20/19 Status: Ordered Plan B One-Step 1.5 mg oral tablet 1.5 mg, 1, tablet, By Mouth, Once, # 1 tablet, Refills 0, Tot. Refills 0, Soft Stop, 08/01/20 16:04:00 EDT, Route to Pharmacy Electronically, [facility]/pharmacy #1130, Partial fill upon patient request if the prescription is for a schedule II opioid drug.,... Start Date: 08/01/20 Status: Ordered Multivitamins with Vitamin B Complex, Vitamin C, Minerals and L- Methylfolate oral capsule 1 capsule, By Mouth, Daily, # 90 capsule, 3 Refills, Maintenance, 12/06/20 13:34:00 EDT, Capsule, [facility]/pharmacy #1130, 1 capsule By Mouth Daily, 160, [...]
--- OUTSIDE RECORDS SUMMARY | 2023-11-29 03:04 | XMS_ITS | Continuity of Care Document ---
[facility] Address Unknown Care Team Providers Care Transfer And Pumphouse Operator Chief Name Role Phone Not on Staff, PCP Primary Care Physician Unavail able [facility] Date[facility]s): 02/[facility]21 - 03/03/21 [facility] Allergies, Adverse Reactions, Alerts Substance Reaction Severity Status NKA Active Immunizations Given and Recorded Vaccine Date Status Refusal Reason tetanus/diphtheria/pertussis, acel(Tdap) 1 03/30/20 Given tetanus/diphtheria/pertussis, acel(Tdap) 02/13/10 Given 1Result Comment: [facility] 18240-402-55 Medications Adderall XR 25 mg oral capsule, extended release 1 capsule = 25 mg, By Mouth, Daily in AM, # 30 capsule, 0 Refills, Maintenance, 01/30/21 13:54:00 EDT, [facility]/pharmacy #[id number], Partial fill upon patient request if the [...] # 30 capsule, 0 Refills, [facility], 160, cm, 11/18/20 13:21:00 EDT, Height, 57.6, [...] 0 Refills, Maintenance, 11/20/19 16:36:00 EDT, Patch, [facility]/pharmacy #2339, 160.02, cm, 11/20/19 15:30:00 EDT, Height, 50.4, kg, 11/20/19 15:30:00 EDT, Dry Weight Start Date: 11/20/19 Status: Ordered Plan B One-Step 1.5 mg oral tablet 1.5 mg, 1, tablet, By Mouth, Once, # 1 tablet, Refills 0, Tot. Refills 0, Soft Stop, 08/01/20 16:04:00 EDT, Route to Pharmacy Electronically, [facility]/pharmacy #1130, Partial fill upon patient request [...]
--- OUTSIDE RECORDS SUMMARY | 2023-11-29 03:04 | XMS_ITS | Continuity of Care Document ---
Author Organization [facility] Address [address] [place] [address], [address] [place] [address]- Care Team Providers Care Date Night Caregiver Name Role Phone Not on Staff, PCP Primary Care Physician Unavail able Encounter [facility] Date(s): 12/26/20 - 01/25/21 [facility] Spar[facility]emarin[facility] [address] [place] [address], [address] [place] [address]- Allergies, Adverse Reactions, Alerts Substance Reaction Severity Status NKA Active Immunizations Given and Recorded Vaccine Date Status Refusal Reason tetanus/diphtheria/pertussis, acel(Tdap) 1 03/30/20 Given tetanus/diphtheria/pertussis, acel(Tdap) 02/13/10 Given 1Result Comment: [facility] [id number] Medications Adderall XR 25 mg oral capsule, [...] tablet, 1 Refills, Maintenance, 01/02/21 14:04:00 EDT, [facility]/pharmacy#[id number], 160, cm, 11/18/20 13:21:00 EDT, Height, 57.6, [...] 0 Refills, Maintenance, 11/20/19 16:36:00 EDT, Patch, [facility]/pharmacy #2339, 160.02, cm, 11/20/19 15:30:00 EDT, Height, 50.4, kg, 11/20/19 15:30:00 EDT, Dry Weight Start Date: 11/20/19 Status: Ordered Plan B One-Step 1.5 mg oral tablet 1.5 mg, 1, tablet, By Mouth, Once, # 1 tablet, Refills 0, Tot. Refills 0, Soft Stop, 08/01/20 16:04:00 EDT, Route to Pharmacy Electronically, [facility]/pharmacy #1130, Partial fill upon patient request if the prescription is for a schedule II opioid drug.,... Start Date: 08/01/20 Status: Ordered Multivitamins with Vitamin B Complex, Vitamin C, Minerals and L- Methylfolate oral capsule 1 capsule, By Mouth, Daily, # 90 capsule, 3 Refills, Maintenance, 12/06/20 13:34:00 EDT, Capsule, [facility]/pharmacy #1130, 1 capsule By Mouth Daily, [...]
--- OUTSIDE RECORDS SUMMARY | 2023-11-29 03:04 | XMS_ITS | Continuity of Care Document ---
Author Organization [facility] Address [address] [place] [address]- Care Team Providers Care Portfolio Management Marketing Name Role Phone Not on Staff, PCP Primary Care Physician Unavail able Encounter [facility] [place] Date(s): 03/22/20 - 05/05/[address] [address]- Attending Physician: Not on Staff, Attending MD Allergies, Adverse Reactions, Alerts Substance Reaction Severity Status NKA Active Immunizations Given and Recorded Vaccine Date Status Refusal Reason tetanus/diphtheria/pertussis, acel(Tdap) 1 03/30/20 Given tetanus/diphtheria/pertussis, acel(Tdap) 02/13/10 Given 1Result Comment: [facility] [id number] Medications Actigall 300 mg oral capsule 300 [...] Maintenance, for 7 days, 12/04/19 17:27:00 EDT, [facility]/pharmacy #2339, 1 application Vaginally at night, 160.02, [...] Refills, Maintenance, 04/15/20 17:01:00 EST, ER Tablet, [facility]/pharmacy #2339, Partial fill upon patient request if the prescr... Start Date: 04/15/20 Status: Ordered Wellbutrin XL 150 mg/24 hours oral tablet, extended release 1 tablet = 150 mg, By Mouth, Every 24 hours, # 30 tablet, 0 Refills, Maintenance, 02/02/20 8:56:00 EDT, [facility]/pharmacy #2339, 160.02, cm, 12/18/19 13:04:00 EDT, Height, 53.4, kg, 12/18/19 13:04:00 EDT,Dry Weight Start Date: 02/02/20 Status: Ordered Wellbutrin XL 300 mg/24 hours oral tablet, extended release 1 tablet = 300 mg, By Mouth, Daily, # 30 tablet, 0 Refills, Maintenance, 02/19/20 12:00:00 EDT, ER Tablet, [facility]/pharmacy #2339, 160.02, cm, 02/19/20 11:40:00 EDT, Height, 55.7, kg, 02/05/20 14:18:00 EDT, Dry Weight Start Date: 02/19/20 Status: Ordered Wellbutrin XL 300 mg/24 hours oral tablet, extended release 1 tablet = 300 mg, By Mouth, Daily, do not crush or chew Take with Wellbutrin XL 150 for total of 450, # 30 tablet, 0 Refills, Maintenance, 04/15/20 17:01:00 EST, ER Tablet, [id number], Partial fill upon patient request if the [...]
--- OUTSIDE RECORDS SUMMARY | 2023-11-29 03:04 | XMS_ITS | Continuity of Care Document ---
Author Organization [facility] Address [address] [place] [address]- Care Team Providers Care Instrument Repairer Steam Plant Name Role Phone Not on Staff, PCP Primary Care Physician Unavail able [facility]counter [facility] Date(s): 08/01/20 - 08/31/20 [facility] and [address] [address]- Allergies, Adverse Reactions, Alerts Substance Reaction Severity Status NKA Active Immunizations Given and Recorded Vaccine Date Status Refusal Reason tetanus/diphtheria/pertussis, acel(Tdap) 1 03/30/20 Given tetanus/diphtheria/pertussis, acel(Tdap) 02/13/10 Given 1Result Comment: [facility] [id number] Medications Adderall XR 10 mg oral capsule, extended release 1 capsule = 10 mg, By Mouth, Daily in AM, # 30 capsule, 0 Refills, Maintenance, 08/29/20 11:35:00 EDT, [facility]/pharmacy #1130, Partial fill upon patient request if the prescription is for a schedule II opioid drug., 1 capsule By Mouth Daily in AM, 160, cm... Start Date: 08/29/20 Status: Ordered buPROPion 150 mg/24 hours (XL) oral tablet, extended release See Instructions, PLEASE SEE ATTACHED FOR DETAILED DIRECTIONS, # 30 tablet, 1 Refills, 08/29/20 11:36:00 EDT, [facility], 30, PLEASE SEE ATTACHED FOR DETAILED DIRECTIONS, 160, cm, 06/03/20 9:54:00 EST, Height, 57.6, kg, 05/03/20 22:11:00 EST,... Start Date: 08/29/20 Status: Ordered buPROPion 300 mg/24 hours (XL) oral tablet, extended release See Instructions, 1 TABLET BY MOUTH DAILY,INSTR:DO NOT CRUSH OR CHEW TAKE WITH WELLBUTRIN XL 150 FOR TOTAL OF 450, # 30 tablet, 1 Refills, Maintenance, 08/29/20 11:36:00 EDT, [facility]/pharmacy #2339, 160,cm, 06/03/20 9:54:00 EST, Height, 57.6, kg, 2... Start Date: 08/29/20 Status: Ordered buPROPion 300 mg/24 hours (XL) oral tablet, extended release 1 tablet, By Mouth, Daily, DO NOT CRUSH OR CHEW. TAKE WITH 150 MG FOR TOTAL OF 450 MG, # 30 tablet,2 Refills, Maintenance, 07/26/20 15:28:00 EDT, [facility]/pharmacy #1130, 160, cm, 06/03/20 9:54:00 EST, Height, 57.6, kg, 05/03/20 22:11:00 EST, Dry Weight Start Date: 07/26/20 Status: Ordered Depo-Provera Contraceptive 150 mg/mL intramuscular suspension 1 mL = 150 mg, Intramuscular, Every 3 months, # 1 mL, 2 Refills, Maintenance, 05/17/20 14:23:00 EST, Suspension, [facility], Partial fill upon patient request if the prescription is for a schedule II opioid drug., 160, cm, 05/06/20 17... Start Date: 05/17/20 Status: Ordered FLUoxetine (Eqv-Prozac) 10 mg oral tablet = 20 mg, By Mouth, Daily, # 45 tablet, 2 Refills, Maintenance, 07/26/20 15:28:00 EDT, [facility]/pharmacy #1130, 160, cm, 06/03/20 9:54:00 EST, Height, 57.6, kg, 05/03/20 22:11:00 EST, Dry Weight Start Date: 07/26/20 Status: Ordered Loestrin 21 06/01 20 mcg-1 mg oral tablet 1 tablet, By Mouth, Daily, # 28 tablet, 2 Refills, Maintenance, 07/26/20 15:28:00 EDT, Tablet, [facility]/pharmacy #1130, Partial fill upon patient request [...] 0 Refills, Maintenance, 11/20/19 16:36:00 EDT, Patch, [facility]/pharmacy #2339, 160.02, cm, 11/20/19 15:30:00 EDT, Height, 50.4, kg, 11/20/19 15:30:00 EDT, Dry Weight Start Date: 11/20/19 Status: Ordered Plan B One-Step 1.5 mg oral tablet 1.5 mg, 1, tablet, By Mouth, Once, # 1 tablet, Refills 0, Tot. Refills 0, Soft Stop, 08/01/20 16:04:00 EDT, Route to Pharmacy Electronically, [facility]/pharmacy #1130, Partial fill upon patient request if the prescription is for a schedule II opioid drug.,... Start Date: 08/01/20 Status: Ordered Multivitamins with Vitamin B Complex, Vitamin C, Minerals and L- Methylfolate oral capsule 1 capsule, By Mouth, Daily, # 90 capsule, 3 Refills, Maintenance, 11/20/19 16:35:00 EDT, Capsule, [facility]/pharmacy #2339, 1 capsule By Mouth Daily, 160.02, cm, 11/20/19 15:30:00 EDT, Height, 50.4, kg, 11/20/19 15:30:00 EDT, Dry Weight Start Date: 11/20/19 Status: Ordered Plus Iron oral tablet 1 tablet, By Mouth, Daily, # 30 tablet, 11 Refills, Maintenance, 10/20/19 16:56:00 EDT, Tablet, [facility]/pharmacy #2339, 1 tablet By Mouth Daily [...]
--- OUTSIDE RECORDS SUMMARY | 2023-11-29 03:04 | XMS_ITS | Continuity of Care Document ---
Author Organization [facility] Address [address] [place] [address]- Care Team Providers Care Suction Worker Name Role Phone Not on Staff, PCP Primary Care Physician Unavail able [place] [facility] [place]14[place] - 07/14/[address] [address]- Attending Physician: Shaun Raman Admitting Physician: Shaun Raman Referring Physician: AdmtrShaun Allergies, Adverse Reactions, Alerts Substance Reaction Severity Status NKA Active Immunizations Given and Recorded Vaccine Date Status Refusal Reason tetanus/diphtheria/pertussis, acel(Tdap) 1 03/30/20 Given tetanus/diphtheria/pertussis, acel(Tdap) 02/13/10 Given 1Result Comment: [facility] 40214-001-57 Medications buPROPion 150 mg/24 hours (XL) oral tablet, extended release See Instructions, PLEASE SEE ATTACHED FOR DETAILED DIRECTIONS, # 30 tablet, 0 Refills, Maintenance,[facility], 30, PLEASE SEE ATTACHED FOR DETAILED DIRECTIONS, 160, cm, 06/03/20 9:54:00 EST, Height, 57.6, kg, 05/03/20 22:11:00 EST, Dry Weight Start Date: 06/08/20 Status: Ordered buPROPion 300 mg/24 hours (XL) oral tablet, extended release 1 tablet, By Mouth, Daily, DO NOT CRUSH OR CHEW. TAKE WITH 150 MG FOR TOTAL OF 450 MG, # 30 tablet,0 Refills, Maintenance, 06/08/20 9:14:00 EST, [facility], 160, cm, 06/03/20 9:54:00 EST, Height, 57.6, kg, 05/03/20 22:11:00 EST, Dry Weight Start Date: 06/08/20 Status: Ordered Depo-Provera Contraceptive 150 mg/mL intramuscular suspension 1 mL = 150 mg, Intramuscular, Every 3 months, # 1 mL, 2 Refills, Maintenance, 05/17/20 14:23:00 EST, Suspension, [facility], Partial fill upon patient request if the prescription is for a schedule II opioid drug., 160, cm, 05/06/20 17... Start Date: 05/17/20 Status: Ordered FLUoxetine (Eqv-Prozac) 10 mg oral tablet = 20 mg, By Mouth, Daily, # 45 tablet, 0 Refills, Maintenance, 06/15/20 19:59:00 EST, [facility], 160, cm, 06/03/20 9:54:00 EST, Height, 57.6, [...] Refills, Maintenance, 11/20/19 16:36:00 EDT, Patch, [facility]/pharmacy #2339, 160.02, cm, 11/20/19 15:30:00 EDT, Height, [...] Refills, Maintenance, 10/20/19 16:56:00 EDT, Tablet, [facility], 1 tablet By Mouth Daily Start Date: [...]
--- OUTSIDE RECORDS SUMMARY | 2023-11-29 03:04 | XMS_ITS | Continuity of Care Document ---
Author Organization [facility] Address [address] [place] [address]- Care Team Providers Care Vehicle Sales Professional Name Role Phone Not on Staff, PCP Primary Care Physician Unavail able [facility] Date(s): 02/18/20 - 03/19/20 [facility] [address] [address]- Allergies, Adverse Reactions, Alerts Substance Reaction Severity Status NKA Active Immunizations Given and Recorded Vaccine Date Status Refusal Reason tetanus/diphtheria/pertussis, acel(Tdap) 02/13/10 Given Medications Actigall 300 mg oral capsule 300 mg, 1, capsule, By Mouth, 3 times a day, # 90 capsule, Refills 3, Tot. Refills 3, Maintenance, 02/22/20 18:06:00 EDT, Route to Pharmacy Electronically, [facility]/pharmacy #[id number], 160.02, cm, 02/19/20 11:40:00 EDT, Height, [...]
--- OUTSIDE RECORDS SUMMARY | 2023-11-29 03:04 | XMS_ITS | Continuity of Care Document ---
Author Organization [facility] Address [address] [place] [address]- Care Team Providers Care Business Relations Manager Name Role Phone Not on Staff, PCP Primary Care Physician Unavail able [facility] Date(s): 03/14/20 - 05/18/20 [facility] and [address] [address]- Attending Physician: Not on Staff, Attending MD Admitting Physician: Ronni Kirk MD Referring Physician: Crystal Farmer CNM Allergies, Adverse Reactions, Alerts Substance Reaction Severity Status NKA Active Immunizations Given and Recorded Vaccine Date Status Refusal Reason tetanus/diphtheria/pertussis, acel(Tdap) 1 03/30/20 Given tetanus/diphtheria/pertussis, acel(Tdap) 02/13/10 Given 1Result Comment: [facility] 94571-042-70 Medications Depo-Provera Contraceptive 150 mg/mL intramuscular suspension 1 mL = 150 mg, Intramuscular, Every 3 months, # 1 mL, 2 Refills, Maintenance, 05/17/20 14:23:00 EST, Suspension, [facility], Partial fill upon patient [...]
--- OUTSIDE RECORDS SUMMARY | 2023-11-29 03:04 | XMS_ITS | Continuity of Care Document ---
Author Organization [facility] Address [address] [place] [address]- Care Team Providers Care Groundwater Consultant Name Role Phone Not on Staff, PCP Primary Care Physician Unavail able Encounter [facility] Date(s): 05/05/20 - 07/16/20 [facility] and [address] [address]- Attending Physician: Not on Staff, Attending MD Referring Physician: Twila Webster CNM Allergies, Adverse Reactions, Alerts Substance Reaction Severity Status NKA Active Immunizations Given and Recorded Vaccine Date Status Refusal Reason tetanus/diphtheria/pertussis, acel(Tdap) 1 03/30/20 Given tetanus/diphtheria/pertussis, acel(Tdap) 02/13/10 Given 1Result Comment: [facility] 25023-036-62 Medications buPROPion 150 mg/24 hours (XL) oral tablet, extended release See Instructions, PLEASE SEE ATTACHED FOR DETAILED DIRECTIONS, # 30 tablet, 0 Refills, Maintenance,[facility], 30, PLEASE SEE ATTACHED FOR DETAILED DIRECTIONS, 160, cm, 06/03/20 9:54:00 EST, Height, 57.6, kg, 05/03/20 22:11:00 EST, Dry Weight Start Date: 06/08/20 Status: Ordered buPROPion 300 mg/24 hours (XL) oral tablet, extended release 1 tablet, By Mouth, Daily, DO NOT CRUSH OR CHEW. TAKE WITH 150 MG FOR TOTAL OF 450 MG, # 30 tablet,0 Refills, Maintenance, 06/08/20 9:14:00 EST, [facility], 160, cm, 06/03/20 9:54:00 EST, Height, 57.6, kg, 05/03/20 22:11:00 EST, Dry Weight Start Date: 06/08/20 Status: Ordered Depo-Provera Contraceptive 150 mg/mL intramuscular suspension 1 mL = 150 mg, Intramuscular, Every 3 months, # 1 mL, 2 Refills, Maintenance, 05/17/20 14:23:00 EST, Suspension, [facility], Partial fill upon patient request if the prescription is for a schedule II opioid drug., 160, cm, 05/06/20 17... Start Date: 05/17/20 Status: Ordered FLUoxetine (Eqv-Prozac) 10 mg oral tablet = 20 mg, By Mouth, Daily, # 45 tablet, 0 Refills, Maintenance, 06/15/20 19:59:00 EST, [facility], 160, cm, 06/03/20 9:54:00 EST, Height, 57.6, [...] Refills, Maintenance, 10/20/19 16:56:00 EDT, Tablet, [facility]/pharmacy #2339, 1 tablet By Mouth Daily Start [...]
--- OUTSIDE RECORDS SUMMARY | 2023-11-29 03:04 | XMS_ITS | Continuity of Care Document ---
Author Organization [facility] Address [address] [place] [address]- Care Team Providers Care Hoop Riveting Machine Operator Helper Name Role Phone Not on Staff, PCP Primary Care Physician Unavail able [facility] Date(s): 01/14/20 - 02/13/[address] [address]- [facility] Allergies, Adverse Reactions, Alerts Substance Reaction [...]
--- OUTSIDE RECORDS SUMMARY | 2023-11-29 03:04 | XMS_ITS | Continuity of Care Document ---
Author Organization [facility] Address [address] [place] [address]- Care Team Providers Care Polishing Machine Operator Helper Name Role Phone Not on Staff, PCP Primary Care Physician Unavail able [place] [facility] [place](s): 03/05/20 - 05/06/20 [facility] [address] [place] [address] Attending Physician: Dominik Rodas DO Admitting Physician: Dominik Rodas DO Allergies, Adverse Reactions, Alerts Substance Reaction Severity Status NKA Active Immunizations Given and Recorded Vaccine Date Status Refusal Reason tetanus/diphtheria/pertussis, acel(Tdap) 1 03/30/20 Given tetanus/diphtheria/pertussis, acel(Tdap) 02/13/10 Given 1Result Comment: [facility] [id number] Medications Methadone = 155 mg, By Mouth, [...]
--- OUTSIDE RECORDS SUMMARY | 2023-11-29 03:04 | XMS_ITS | Continuity of Care Document ---
Author Organization [facility] Address [address] [place] [address]- Care Team Providers Care Magnetic Grinder Operator Name Role Phone Not on Staff, PCP Primary Care Physician Unavail able [place] [facility] [place](s): 01/28/20 - 03/12/[address] [address]- [facility] Attending Physician: Not on Staff, [...] tablet, 0 Refills, Maintenance, 02/02/20 8:56:00 EDT, [facility]/pharmacy #2339, 160.02, cm, 12/18/19 13:04:00 EDT, Height, [...]
--- OUTSIDE RECORDS SUMMARY | 2023-11-29 03:04 | XMS_ITS | Continuity of Care Document ---
Author Organization [facility] Address [address] [place] [address] Care Team Providers Care Chemical Lab Technician Name Role Phone Not on Staff, PCP Primary Care Physician Unavail able [facility] Date(s): 02/04/20 - 03/05/20 [facility] and [address] [address]- [facility] Allergies, Adverse Reactions, Alerts Substance Reaction Severity Status NKA Active Immunizations Given and Recorded Vaccine Date Status Refusal Reason tetanus/diphtheria/pertussis, acel(Tdap) 02/13/10 Given Medications Actigall 300 mg oral capsule 300 mg, 1, capsule, By Mouth, 3 times a day, # 90 capsule, Refills 3, Tot. Refills 3, Maintenance, 02/22/20 18:06:00 EDT, Route to Pharmacy Electronically, [facility]/pharmacy #2339, 160.02, cm, 02/19/20 [...]
--- OUTSIDE RECORDS SUMMARY | 2023-11-29 03:04 | XMS_ITS | Continuity of Care Document ---
Author Organization [facility] Address [address] [place] [address]- Care Team Providers Care Cream Maker Name Role Phone Not on Staff, PCP Primary Care Physician Unavail able [place] [facility] [place] 09/30/23 - 10/30/23 [facility] and [address] [address]- Allergies, Adverse Reactions, Alerts No Known Allergies Immunizations Given and Recorded Vaccine Date Status Refusal Reason tetanus/diphtheria/pertussis, acel(Tdap) 1 03/30/20 Given tetanus/diphtheria/pertussis, acel(Tdap) 02/13/10 Given 1Result Comment: [facility] 49049-042-22 Medications ibuprofen 600 mg oral tablet 600 mg, 1, tablet, By Mouth, Every 6 hours, # 30 tablet, Refills 1, Tot. Refills 1, Maintenance, 10/17/23 12:08:00 EDT, Route to Pharmacy Electronically, [facility]/pharmacy #8435, Partial fill upon patientrequest if the prescription [...] 0 Refills, Maintenance, 10/17/23 12:08:00 EDT, Tablet, [facility]/pharmacy #8408, Partial fill upon patient request if the [...] Personnel Name: Not on Staff, PCP Position: [facility] Physician (General Medicine) Member Role: PCP Care Team Related Persons Name: TRACY KEN Address: [employer] Address: home [address], [place] Name: MARKUS KEN Address: home [address], [place] Name: TIBURCIO VASQUEZ Name: LOUIE BETANCOURT Address: home [address] [place] [address]
--- NOTE | 2023-11-29 03:57 | PC.NURSE ---
Patient brought to ED by Karina MICHELLE for evaluation of vague SI statement with no plan, denies HI and feeling depressed. Patient is calm, compliant with foreign exchange student coordinator requests, belongings secured in locker. Patient agreeable to vitals. Labs draw delayed d/t computers being down. Patient provided with turkey sandwich, cheese stick, and apple juice, tolerated well. Patient ambulated to the restroom with a steady gait. Patient currently resting in a bed, not in acute distress, awaiting to be seen by ED provider.
[2023-11-29 04:04] VITALS: PULSE 73
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
[2023-11-29 04:56] LABS: MANUAL DIFF FLAG NO
[2023-11-29 04:57] LABS: Basophils Percent Auto 0.5 % (0-2); Eosinophils Absolute Auto 0.1 X10*3/uL (0.0-0.4); Eosinophils Percent Auto 1.5 % (0-4); Hematocrit 40.2 % (37.0-47.0); Imm Gran Abs Auto 0.01 X10*3/uL (0.00-0.03); Imm Gran Pct Auto 0.2 % (0.0-0.4); Lymphocytes Absolute Auto 2.2 X10*3/uL (1.2-4.9); Lymphocytes Percent Auto 32.8 % (20-40); Mean Corpuscular HGB Conc 32.3 g/dl (31.0-35.0); Mean Corpuscular Volume 89.5 fL (80.0-98.0); Monocytes Absolute Auto 0.8 X10*3/uL (0.1-1.2); Monocytes Percent Auto 12.7 % (2-11); Neutrophils Absolute Auto 3.4 x10*3/uL (2.0-8.3); Neutrophils Percent Auto 52.3 % (45-73); Platelet Count 282 X10*3/uL (160-400); Red Blood Count 4.49 X10*6/uL (4.20-5.50); Red Cell Distribution Width 12.3 % (11.0-16.0); White Blood Count 6.6 X10*3/uL (4.8-10.8)
[2023-11-29 05:00] LABS: UPreg QC Valid YES; Urine Pregnancy NEGATIVE (NEGATIVE)
--- NOTE | 2023-11-29 05:05 | PC.NURSE ---
Urine sample collected, labs drawn, both specimens sent to lab for processing.
[2023-11-29 05:13] LABS: Barbiturates, Urine Not Detected (Not Detect); Buprenorphine Scr Not Detected (Not Detect); Methadone Screen, Urine Positive (Not Detect); Opiate Screen Urine POSITIVE (Not Detect); Oxycodone Screen Urine Not Detected (Not Detect)
[2023-11-29 05:14] LABS: Amphetamine Screen Urine Not Detected (Not Detect); Benzodiazepines Screen Urine POSITIVE (Not Detect); Cannabinoid Screen Urine Not Detected (Not Detect); Cocaine Screen Urine POSITIVE (Not Detect); Fentanyl, urine POSITIVE (Not Detect); Phencyclidine Screen Urine Not Detected (Not Detect); Potassium 4.1 mmol/L (3.3-5.1)
[2023-11-29 05:15] LABS: Anion Gap 16 (12-20); Blood Urea Nitrogen 11 mg/dL (9-16); Carbon Dioxide 19 mmol/L (22-29); Chloride 108 mmol/L (96-108); Creatinine Clr Calc Pharmacy 72.3; Estimated Glomerular Filt Rate > 60; Ethanol < 10 mg/dL; Sodium 139 mmol/L (135-145)
[2023-11-29 05:16] LABS: Calcium 9.3 mg/dL (8.4-10.2); Glucose Fasting 113 mg/dL (60-99)
--- NOTE | 2023-11-29 07:16 | PC.NURSE ---
Assumed care of patient at 0645, patient appears to be in no apparent distress, respirations even and unlabored. Continue plan of care for inpatient bedsearch
--- NOTE | 2023-11-29 09:21 | HE.PHANOTE ---
RE: METHADONE DOSING Last dose of methadone 50 mg was given on 11/28/23 at [facility] per JESSE Hernandez.
[2023-11-29] MEDS: methADONE HCl 20 MG/2 ML ORAL.CONC 50 MG PO (10:04)
[2023-11-29 10:29] LABS: Appearance Urine Cloudy; Color Urine Dark Yellow; Glucose Urine UA Negative (Negative); Leukocyte Esterase Urine Negative (Negative); Nitrite Urine Negative (Negative); PH 5.5 (5.0-9.0); Specific Gravity - Urine >= 1.030 (1.005-1.025); Urine Blood Negative (Negative); Urine Ketones 15 mg/dL (Negative); Urine Protein Trace mg/dL (Neg-Trace)
--- NOTE | 2023-11-29 12:01 | PC.NURSE ---
Patient refusing to go to xray, patient also refusing EKG
[2023-11-29 12:21] VITALS: BP 124/75; PULSE 69; TEMP 36.4; O2SAT 99
[2023-11-29 12:33] VITALS: BMI 20.4
[2023-11-29] MEDS: LORazepam 1 MG TABLET PO ×2 (13:22→16:45)
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
[2023-11-29] MEDS: methADONE HCl 20 MG/2 ML ORAL.CONC 5 MG PO (14:06)
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
[2023-11-29] MEDS: LORazepam 1 MG TABLET 2 MG PO (20:53)
[2023-11-29] MEDS: traZODone HCL 50 MG TABLET PO (20:54)
[2023-11-29] MEDS: hydrOXYzine HCL 25 MG TABLET PO (20:54)
[2023-11-29] MEDS: Acetaminophen 325 MG TABLET 650 MG PO (20:54)
[2023-11-29 21:44] VITALS: RESP 16
[2023-11-30 08:00] VITALS: BP 139/76; PULSE 61; RESP 16; O2SAT 98
[2023-11-30] MEDS: methADONE HCl 20 MG/2 ML ORAL.CONC 55 MG PO (08:02)
--- NOTE | 2023-11-30 08:18 | HO.PSYCHPN ---
Subjective Subjective Date of Service: 11/30/23 Reason For Visit: SI Interim History: met with patient. Discussed with Nursing. On CIWA protocol. Patient reports she is experiencing alcohol withdrawal symptoms. Is able to separate those out from opiate withdrawal. CIWA protocol is symptom triggered i.e. as needed. Received 2 mg of Ativan this afternoon. No hallucinations. Otherwise does not dorsum depression. No SI. No overt psychosis. Medication Compliance: Yes Side effects from medications: No Attending Groups: No Review of Systems Acute medical concerns: No Review of Systems Review of Systems Feeling tremulous and sweaty Mental Status Exam Mental Status Exam Narrative: bruise under left eye. disheveled, in hospital [facility]. cooperative. no PMA/PMR. speech nml rate, amount, loudness, tone, latency. thoughts linear and logical without delusions or paranoia. affect constricted, normo-intense, non-labile. mood anxious. no psychosis. no SI. denies HI or VH. Does have some sweating and tremor Diagnostics Vital Signs (24Hr): Vital Signs - 24 hr 11/29/23 12:21 11/29/23 21:44 Temperature 97.5 F Pulse Rate 69 Respiratory Rate 16 Blood Pressure 124/75 Pulse Oximetry 99 Oxygen Delivery Method Room Air BMI result Body Mass Index 20.4 Labs 11/29/23 04:50 11/29/23 04:50 Labs: Laboratory Results - last 48 hr 11/29/23 04:50 WBC 6.6 RBC 4.49 Hgb 13.0 Hct 40.2 MCV 89.5 MCH 29.0 MCHC 32.3 RDW 12.3 Plt Count 282 MPV 10.0 Immature Gran % (Auto) 0.2 Neut % (Auto) 52.3 Lymph % (Auto) 32.8 [place] % (Auto) 12.7 H Eos % (Auto) 1.5 Baso % (Auto) 0.5 Lymph # (Auto) 2.2 [place] # (Auto) 0.8 Eos # (Auto) 0.1 Baso # (Auto) 0.0 Abs Immat Gran (auto) 0.01 Absolute Neuts (auto) 3.4 Absolute Nucleated RBC 0.000 Nucleated RBC % (auto) 0.0 Sodium 139 Potassium 4.1 Chloride 108 Carbon Dioxide 19 L Anion Gap 16 BUN 11 Creatinine 0.88 Estim Creat Clear Calc 72.3 Estimated GFR > 60 Fasting Glucose 113 H Calcium 9.3 Urine Color Dark Yellow Urine Appearance Cloudy Urine pH 5.5 Ur Specific [place] >= 1.030 H Urine Protein Trace Urine Glucose (UA) Negative Urine Ketones 15 Urine Blood Negative Urine Nitrite Negative Ur Leukocyte Esterase Negative Urine Test NEGATIVE Urine Opiates Screen POSITIVE H Ur Buprenorphine Scrn Not Detected Ur Oxycodone Screen Not Detected Urine Methadone Screen Positive H Urine Fentanyl Screen POSITIVE H Ur Barbiturates Screen Not Detected Ur Phencyclidine Scrn Not Detected Ur Amphetamines Screen Not Detected U Benzodiazepines Scrn POSITIVE H Urine Cocaine Screen POSITIVE H U Marijuana (THC) Screen Not Detected Ethyl Alcohol < 10 Medications Medications Current Medications Acetaminophen (Acetaminophen 325 Mg Tablet) 650 mg PO Q6H PRN PRN Reason: Headache/Pain Mild Scale (1-3) Last Admin: 11/29/23 20:54 Dose: 650 mg Al Hydroxide/Mg Hydroxide (Magnesium Hydrox/Alum Hydrox 30 Ml Oral.Susp) 30 ml PO Q6H PRN PRN Reason: Heartburn/Nausea Hydroxyzine HCl (Hydroxyzine Hcl 25 Mg Tablet) 25 mg PO Q6H PRN PRN Reason: Anxiety Last Admin: 11/29/23 20:54 Dose: 25 mg Lorazepam (Lorazepam 1 Mg Tablet) 1 mg PO Q2H PRN PRN Reason: CIWA 8-11 Last Admin: 11/29/23 16:45 Dose: 1 mg Lorazepam (Lorazepam 1 Mg Tablet) 2 mg PO Q2H PRN PRN Reason: CIWA 12-15 Last Admin: 11/29/23 20:53 Dose: 2 mg Lorazepam (Lorazepam 1 Mg Tablet) 3 mg PO Q2H PRN PRN Reason: CIWA > 15; and call Magnesium Hydroxide (Milk Of Magnesia 30 Ml Oral.Susp) 30 ml PO DAILY PRN PRN Reason: Constipation Methadone HCl (Methadone Hcl 20 Mg/2 Ml Oral.Conc) 55 mg PO DAILY STEVE Last Admin: 11/30/23 08:02 Dose: 55 mg Nicotine Polacrilex (Nicotine Polacrilex 2 Mg Gum) 4 mg BUCCAL Q2H PRN PRN Reason: Nicotine Cravings Trazodone HCl (Trazodone Hcl 50 Mg Tablet) 50 mg PO BEDTIME MRX1 PRN PRN Reason: Insomnia Last Admin: 11/29/23 20:54 Dose: 50 mg Allergies Allergies Allergy/AdvReac Type Severity Reaction Status Date / Time No Known Allergies Allergy Verified 11/29/23 03:02 Assessment & Plan Assessment & Plan (1) Polysubstance abuse: Status: Acute Code(s): F19.10 - Other psychoactive substance abuse, uncomplicated (2) Substance-induced psychotic disorder: Status: Acute Code(s): F19.959 - Other psychoactive substance use, unspecified with psychoactive substance-induced psychotic disorder, unspecified Plan supportive care for withdrawal from cocaine. increase methadone to 55 mg per pt request. ativan per CIWA protocol. allow to come through withdrawal, then broach Tx for mood and anxiety. 11/30/2023: No changes to current plan. Maintain Ativan as per CIWA protocol. Is on methadone and will not initiate COWS. Reason for continued inpatient stay Substantial Risk for: inability to function Time Spent With Patient Time: Total time managing care of this patient today ____ minutes.
[2023-11-30] MEDS: hydrOXYzine HCL 25 MG TABLET PO ×2 (12:04→22:04)
[2023-11-30] MEDS: LORazepam 1 MG TABLET 2 MG PO ×2 (12:04→19:21)
[2023-11-30 13:29] LABS: Estimated Average Glucose 97 mg/dL
[2023-11-30 13:39] LABS: Cholesterol 176 mg/dL (<200); HDL Cholesterol 58 mg/dL (>40); LDL Cholesterol Calculated 82 mg/dL (<100); Triglycerides 184 mg/dL (<150)
[2023-11-30 13:54] LABS: Free T4 (Free Thyroxine) 0.86 ng/dL (0.71-1.85); Thyroid Stimulating Hormone 1.04 uIU/mL (0.32-4.0)
[2023-11-30 14:07] LABS: Folate 12.5 ng/mL (> or = 4.0); Vitamin B12 520 pg/mL (200-900)
[2023-11-30 19:20] VITALS: BP 105/72; PULSE 83; RESP 16; TEMP 36.7; O2SAT 98
[2023-11-30] MEDS: traZODone HCL 50 MG TABLET PO (22:04)
[2023-11-30] MEDS: Acetaminophen 325 MG TABLET 650 MG PO (22:04)
[2023-12-01 07:20] VITALS: BP 104/71; PULSE 68; RESP 20; TEMP 36.6; O2SAT 98
[2023-12-01 08:00] VITALS: BP 104/71; PULSE 68; RESP 20; TEMP 36.6; O2SAT 98
[2023-12-01] MEDS: methADONE HCl 20 MG/2 ML ORAL.CONC 55 MG PO (08:05)
--- NOTE | 2023-12-01 10:32 | HO.PSYCHPN ---
Subjective Subjective Date of Service: 12/01/23 Reason For Visit: SI Interim History: met with patient. Discussed with Nursing. On [facility] protocol. Patient feels like opiate withdrawal is an issue- gooseflesh, rhinorrhea. Has been on methadone michaela 80-90 mg in the past. Also on [facility] protocol is symptom triggered i.e. as needed. Pulse in 60s, BP normal. No tremor. No hallucinations. Otherwise does feel down, but no SI. No overt psychosis. Medication Compliance: Yes Side effects from medications: No Attending Groups: No Review of Systems Acute medical concerns: No Review of Systems Review of Systems opiate withdrawal Mental Status Exam Mental Status Exam Narrative: bruise under left eye. disheveled, in hospital [facility] cooperative. no PMA/PMR. speech nml rate, amount, loudness, tone, latency. thoughts linear and logical without delusions or paranoia. affect constricted, normo-intense, non-labile. mood anxious. no psychosis. no SI. denies HI or VH. Does have some sweating and tremor Diagnostics Vital Signs (24Hr): Vital Signs - 24 hr 11/30/23 19:20 12/01/23 07:20 Temperature 98.0 F 97.9 F Pulse Rate 83 68 Respiratory Rate 16 20 Blood Pressure 105/72 104/71 Pulse Oximetry 98 98 Oxygen Delivery Method Room Air Room Air BMI result Body Mass Index 20.4 Labs 11/29/23 04:50 11/29/23 04:50 Labs: Laboratory Results - last 48 hr 11/30/23 13:10 Estimat Average Glucose 97 Hemoglobin A1c % 5.0 Triglycerides 184 H Cholesterol 176 LDL Cholesterol, Calc 82 HDL Cholesterol 58 Vitamin B12 520 Folate 12.5 TSH 1.04 Free T4 0.86 Medications Medications Current Medications Acetaminophen (Acetaminophen 325 Mg Tablet) 650 mg PO Q6H PRN PRN Reason: Headache/Pain Mild Scale (1-3) Last Admin: 11/30/23 22:04 Dose: 650 mg Al Hydroxide/Mg Hydroxide (Magnesium Hydrox/Alum Hydrox 30 Ml Oral.Susp) 30 ml PO Q6H PRN PRN Reason: Heartburn/Nausea Hydroxyzine HCl (Hydroxyzine Hcl 25 Mg Tablet) 25 mg PO Q6H PRN PRN Reason: Anxiety Last Admin: 11/30/23 22:04 Dose: 25 mg Lorazepam (Lorazepam 1 Mg Tablet) 1 mg PO Q2H PRN PRN Reason: CIWA 8-11 Last Admin: 11/29/23 16:45 Dose: 1 mg Lorazepam (Lorazepam 1 Mg Tablet) 2 mg PO Q2H PRN PRN Reason: CIWA 12-15 Last Admin: 11/30/23 19:21 Dose: 2 mg Lorazepam (Lorazepam 1 Mg Tablet) 3 mg PO Q2H PRN PRN Reason: CIWA > 15; and call Magnesium Hydroxide (Milk Of Magnesia 30 Ml Oral.Susp) 30 ml PO DAILY PRN PRN Reason: Constipation Methadone HCl (Methadone Hcl 20 Mg/2 Ml Oral.Conc) 55 mg PO DAILY STEVE Last Admin: 12/01/23 08:05 Dose: 55 mg Nicotine Polacrilex (Nicotine Polacrilex 2 Mg Gum) 4 mg BUCCAL Q2H PRN PRN Reason: Nicotine Cravings Trazodone HCl (Trazodone Hcl 50 Mg Tablet) 50 mg PO BEDTIME MRX1 PRN PRN Reason: Insomnia Last Admin: 11/30/23 22:04 Dose: 50 mg Allergies Allergies Allergy/AdvReac Type Severity Reaction Status Date / Time No Known Allergies Allergy Verified 11/29/23 03:02 Assessment & Plan Assessment & Plan (1) Polysubstance abuse: Status: Acute Code(s): F19.10 - Other psychoactive substance abuse, uncomplicated (2) Substance-induced psychotic disorder: Status: Acute Code(s): F19.959 - Other psychoactive substance use, unspecified with psychoactive substance-induced psychotic disorder, unspecified Plan supportive care for withdrawal from cocaine. increase methadone to 55 mg per pt request. ativan per [place] protocol. allow to come through withdrawal, then broach Tx for mood and anxiety. 11/30/2023: No changes to current plan. Maintain Ativan as per CIWA protocol. Is on methadone and will not initiate COWS. 12/01/23: Patient feels like opiate withdrawal is an issue- gooseflesh, rhinorrhea. Has been on methadone michaela 80-90 mg in the past. Will increase scheduled dose to 60mg with one time of 5mg today to make up daily dose of 60mg (received 55mg this morning) and start COWS Reason for continued inpatient stay Substantial Risk for: inability to function Time Spent With Patient Time: Total time managing care of this patient today ____ minutes.
[2023-12-01] MEDS: methADONE HCl 20 MG/2 ML ORAL.CONC 5 MG PO (11:53)
[2023-12-01] MEDS: LORazepam 1 MG TABLET PO ×2 (13:09→20:08)
[2023-12-01] MEDS: Acetaminophen 325 MG TABLET 650 MG PO ×2 (13:09→20:08)
[2023-12-01 16:00] VITALS: PULSE 62
[2023-12-01 20:00] VITALS: BP 91/54; PULSE 85; RESP 16; TEMP 37.5; O2SAT 97
[2023-12-01] MEDS: hydrOXYzine HCL 25 MG TABLET PO (22:32)
[2023-12-01] MEDS: traZODone HCL 50 MG TABLET PO (22:32)
[2023-12-01] MEDS: LORazepam 1 MG TABLET 2 MG PO (23:59)
[2023-12-02] VITALS: PULSE 71
[2023-12-02 07:35] VITALS: BP 113/53; PULSE 76; RESP 14; TEMP 36.7; O2SAT 98
[2023-12-02] MEDS: methADONE HCl 20 MG/2 ML ORAL.CONC 60 MG PO (07:44)
[2023-12-02 07:59] VITALS: PULSE 76
[2023-12-02] MEDS: Nicotine Polacrilex 2 MG GUM 4 MG BUCCAL (08:03)
[2023-12-02] MEDS: Milk of Magnesia 30 ML ORAL.SUSP PO (08:26)
[2023-12-02] MEDS: LORazepam 1 MG TABLET PO ×3 (08:26→20:13)
[2023-12-02 16:00] VITALS: PULSE 74
[2023-12-02] MEDS: hydrOXYzine HCL 25 MG TABLET PO (16:05)
[2023-12-02 16:48] VITALS: BP 106/64
[2023-12-02] MEDS: cloNIDine HCL 0.1 MG TABLET PO (16:48)
[2023-12-02] MEDS: Ibuprofen 800 MG TABLET PO (16:49)
--- NOTE | 2023-12-02 19:26 | PC.NURSE ---
Today during visit with mother pt requested that all of her belongings in decon be given to mother. Brijesh Butler admin informed and this was approved. Pt and mother were educated that none of the decon items could be brought to pt on unit and both verbalized understanding and agreed.
[2023-12-02 20:00] VITALS: BP 88/53; PULSE 88; RESP 14; TEMP 36.3; O2SAT 97
[2023-12-02] MEDS: Dicyclomine HCl 10 MG CAPSULE PO (20:13)
[2023-12-02] MEDS: traZODone HCL 50 MG TABLET PO (20:13)
--- NOTE | 2023-12-02 22:09 | P.PNPSI_ITS ---
Subjective Subjective Date of Service: 12/02/23 Reason For Visit: SI Interim History: wants to leave. signed 3-day notice. ativan taper ordered, pt informed. per staff, agitated, asking to see MD. dep/anx. CIWA 6, 8, 1, 10, 12, 6/ COWS 11. c/o stimach cramps, anxiety, nasal congestion. methadone increased to 60 yesterday. intermittent SI without plan. Mental Status Exam Mental Status Exam Narrative: bruise under left eye. [facility]hevel[facility] cooperative. no PMA/PMR. speech nml rate, amount, loudness, tone, latency. thoughts linear and logical without delusions or paranoia. affect constricted, normo-intense, non- labile. mood anxious. no psychosis. no SI/HI/AVH expressed. Diagnostics Vital Signs (24Hr): Vital Signs - 24 hr 12/02/23 07:35 12/02/23 16:48 12/02/23 20:00 Temperature 98.0 F 97.4 F Pulse Rate 76 88 Respiratory Rate 14 14 Blood Pressure 113/53 L 106/64 88/53 L Pulse Oximetry 98 97 Oxygen Delivery Method Room Air Room Air BMI result Body Mass Index 20.4 Labs 11/29/23 04:50 11/29/23 04:50 Medications Medications Current Medications Acetaminophen (Acetaminophen 325 Mg Tablet) 650 mg PO Q6H PRN PRN Reason: Headache/Pain Mild Scale (1-3) Last Admin: 12/01/23 20:08 Dose: 650 mg Al Hydroxide/Mg Hydroxide (Magnesium Hydrox/Alum Hydrox 30 Ml Oral.Susp) 30 ml PO Q6H PRN PRN Reason: Heartburn/Nausea Clonidine HCl (Clonidine Hcl 0.1 Mg Tablet) 0.1 mg PO TID PRN; Protocol PRN Reason: opiate withdrawal Last Admin: 12/02/23 16:48 Dose: 0.1 mg Dicyclomine HCl (Dicyclomine Hcl 10 Mg Capsule) 10 mg PO QIDACHS PRN PRN Reason: stomach spasm Last Admin: 12/02/23 20:13 Dose: 10 mg Hydroxyzine HCl (Hydroxyzine Hcl 25 Mg Tablet) 25 mg PO Q6H PRN PRN Reason: Anxiety Last Admin: 12/02/23 16:05 Dose: 25 mg Ibuprofen (Ibuprofen 800 Mg Tablet) 800 mg PO Q8H PRN PRN Reason: aches Last Admin: 12/02/23 16:49 Dose: 800 mg Lorazepam (Lorazepam 0.5 Mg Tablet) 0.5 mg PO QID [facility] Stop: 12/03/23 21:01 Lorazepam (Lorazepam 0.5 Mg Tablet) 0.5 mg PO BID [facility] Stop: 12/05/23 09:01 Magnesium Hydroxide (Milk Of Magnesia 30 Ml Oral.Susp) 30 ml PO DAILY PRN PRN Reason: Constipation Last Admin: 12/02/23 08:26 Dose: 30 ml Methadone HCl (Methadone Hcl 20 Mg/2 Ml Oral.Conc) 60 mg PO DAILY STEVE Last Admin: 12/02/23 07:44 Dose: 60 mg Nicotine Polacrilex (Nicotine Polacrilex 2 Mg Gum) 4 mg BUCCAL Q2H PRN PRN Reason: Nicotine Cravings Last Admin: 12/02/23 08:03 Dose: 4 mg Trazodone HCl (Trazodone Hcl 50 Mg Tablet) 50 mg PO BEDTIME MRX1 PRN PRN Reason: Insomnia Last Admin: 12/02/23 20:13 Dose: 50 mg Allergies Allergies Allergy/AdvReac Type Severity Reaction Status Date / Time No Known Allergies Allergy Verified 11/29/23 03:02 Assessment & Plan Assessment & Plan (1) Polysubstance abuse: Status: Acute Code(s): F19.10 - Other psychoactive substance abuse, uncomplicated (2) Substance-induced psychotic disorder: Status: Acute Code(s): F19.959 - Other psychoactive substance use, unspecified with psychoactive substance-induced psychotic disorder, unspecified Plan supportive care for withdrawal from cocaine. increase methadone to 55 mg per pt request. ativan per CIWA protocol. allow to come through withdrawal, then broach Tx for mood and anxiety. 11/30/2023: No changes to current plan. Maintain Ativan as per CIWA protocol. Is on methadone and will not initiate COWS. 12/01/23: Patient feels like opiate withdrawal is an issue- gooseflesh, rhinorrhea. Has been on methadone michaela 80-90 mg in the past. Will increase scheduled dose to 60mg with one time of 5mg today to make up daily dose of 60mg (received 55mg this morning) and start COWS. 12/01: ativan taper over next few days. 3-0 signed, up . T/C increase in methadone to 65 mg. Reason for continued inpatient stay Substantial Risk for: harm to self, harm to others and rapid decompensation Time Spent With Patient Time: Total time managing care of this patient today ____ minutes.
[2023-12-03] VITALS: PULSE 72
[2023-12-03] MEDS: hydrOXYzine HCL 25 MG TABLET PO (00:14)
[2023-12-03] MEDS: traZODone HCL 50 MG TABLET PO ×2 (00:14→20:04)
[2023-12-03 08:00] VITALS: BP 91/55; PULSE 63; RESP 16; TEMP 36.4; O2SAT 100
[2023-12-03] MEDS: methADONE HCl 20 MG/2 ML ORAL.CONC 60 MG PO (08:00)
[2023-12-03 09:13] VITALS: PULSE 70
[2023-12-03] MEDS: LORazepam 0.5 MG TABLET PO ×4 (09:13→20:04)
--- NOTE | 2023-12-03 15:30 | HO.PSYCHPN ---
Subjective Subjective Date of Service: 12/03/23 Reason For Visit: SI Interim History: asking about discharge, reminded 30-day up . states she isn't concerned about her food being poisoned anymore. paranoid delusions appear to be dissolving. planning to discharge , upon expiry of her 3-day notice. per staff, mother visited. COWS 4, 5. trazodone x 2. atarax x 1. slept 7 hours. Mental Status Exam Mental Status Exam Narrative: bruise under left eye. disheveled, in hospital [facility]. cooperative. no PMA/PMR. speech nml rate, amount, loudness, tone, latency. thoughts linear and logical without delusions or paranoia. affect constricted, normo-intense, non-labile. mood anxious. no psychosis. no SI/HI/AVH expressed. Diagnostics Vital Signs (24Hr): Vital Signs - 24 hr 12/02/23 16:48 12/02/23 20:00 12/03/23 08:00 Temperature 97.4 F 97.5 F Pulse Rate 88 63 Respiratory Rate 14 16 Blood Pressure 106/64 88/53 L 91/55 L Pulse Oximetry 97 100 Oxygen Delivery Method Room Air Room Air BMI result Body Mass Index 20.4 Labs 11/29/23 04:50 11/29/23 04:50 Medications Medications Current Medications Acetaminophen (Acetaminophen 325 Mg Tablet) 650 mg PO Q6H PRN PRN Reason: Headache/Pain Mild Scale (1-3) Last Admin: 12/01/23 20:08 Dose: 650 mg Al Hydroxide/Mg Hydroxide (Magnesium Hydrox/Alum Hydrox 30 Ml Oral.Susp) 30 ml PO Q6H PRN PRN Reason: Heartburn/Nausea Clonidine HCl (Clonidine Hcl 0.1 Mg Tablet) 0.1 mg PO TID PRN; Protocol PRN Reason: opiate withdrawal Last Admin: 12/02/23 16:48 Dose: 0.1 mg Dicyclomine HCl (Dicyclomine Hcl 10 Mg Capsule) 10 mg PO QIDACHS PRN PRN Reason: stomach spasm Last Admin: 12/02/23 20:13 Dose: 10 mg Hydroxyzine HCl (Hydroxyzine Hcl 25 Mg Tablet) 25 mg PO Q6H PRN PRN Reason: Anxiety Last Admin: 12/03/23 00:14 Dose: 25 mg Ibuprofen (Ibuprofen 800 Mg Tablet) 800 mg PO Q8H PRN PRN Reason: aches Last Admin: 12/02/23 16:49 Dose: 800 mg Lorazepam (Lorazepam 0.5 Mg Tablet) 0.5 mg PO QID [facility] Stop: 12/03/23 21:01 Last Admin: 12/03/23 13:14 Dose: 0.5 mg Lorazepam (Lorazepam 0.5 Mg Tablet) 0.5 mg PO BID [facility] Stop: 12/05/23 09:01 Magnesium Hydroxide (Milk Of Magnesia 30 Ml Oral.Susp) 30 ml PO DAILY PRN PRN Reason: Constipation Last Admin: 12/02/23 08:26 Dose: 30 ml Methadone HCl (Methadone Hcl 20 Mg/2 Ml Oral.Conc) 60 mg PO DAILY [facility] Last Admin: 12/03/23 08:00 Dose: 60 mg Nicotine Polacrilex (Nicotine Polacrilex 2 Mg Gum) 4 mg BUCCAL Q2H PRN PRN Reason: Nicotine Cravings Last Admin: 12/02/23 08:03 Dose: 4 mg Trazodone HCl (Trazodone Hcl 50 Mg Tablet) 50 mg PO BEDTIME MRX1 PRN PRN Reason: Insomnia Last Admin: 12/03/23 00:14 Dose: 50 mg Allergies Allergies Allergy/AdvReac Type Severity Reaction Status Date / Time No Known Allergies Allergy Verified 11/29/23 03:02 Assessment & Plan Assessment & Plan (1) Polysubstance abuse: Status: Acute Code(s): F19.10 - Other psychoactive substance abuse, uncomplicated (2) Substance-induced psychotic disorder: Status: Acute Code(s): F19.959 - Other psychoactive substance use, unspecified with psychoactive substance-induced psychotic disorder, unspecified Plan supportive care for withdrawal from cocaine. increase methadone to 55 mg per pt request. ativan per CIWA protocol. allow to come through withdrawal, then broach Tx for mood and anxiety. 11/30/2023: No changes to current plan. Maintain Ativan as per CIWA protocol. Is on methadone and will not initiate COWS. 12/01/23: Patient feels like opiate withdrawal is an issue- gooseflesh, rhinorrhea. Has been on methadone michaela 80-90 mg in the past. Will increase scheduled dose to 60mg with one time of 5mg today to make up daily dose of 60mg (received 55mg this morning) and start COWS. 12/01: ativan taper over next few days. 3-0 signed, up . T/C increase in methadone to 65 mg. 12/02: continue current mgmt. discharge . resolving paranoid delusions. Reason for continued inpatient stay Substantial Risk for: inability to function and rapid decompensation Time Spent With Patient Time: Total time managing care of this patient today ____ minutes.
--- NOTE | 2023-12-03 15:56 | MHC.RECOVRN ---
AUDIT-C Brief Intervention Pt had positive screen for unhealthy alcohol use on admission. Attempted to meet with pt to discuss alcohol use and offer resources, pt declined.
[2023-12-03 16:00] VITALS: PULSE 68
[2023-12-03 20:00] VITALS: BP 125/59; PULSE 74; RESP 16; TEMP 36.6; O2SAT 98
[2023-12-03] MEDS: Dicyclomine HCl 10 MG CAPSULE PO (20:04)
[2023-12-03] MEDS: Nicotine Polacrilex 2 MG GUM 4 MG BUCCAL (21:12)
[2023-12-04] VITALS: PULSE 72
[2023-12-04 08:00] VITALS: BP 99/49; PULSE 66; RESP 18; TEMP 36.9; O2SAT 98
[2023-12-04] MEDS: methADONE HCl 20 MG/2 ML ORAL.CONC 60 MG PO (08:02)
[2023-12-04] MEDS: LORazepam 0.5 MG TABLET PO ×2 (08:43→20:09)
[2023-12-04] MEDS: Nicotine Polacrilex 2 MG GUM 4 MG BUCCAL ×2 (10:16→21:06)
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
[2023-12-04] MEDS: hydrOXYzine HCL 25 MG TABLET PO ×2 (13:54→20:09)
[2023-12-04 16:00] VITALS: PULSE 72
--- NOTE | 2023-12-04 17:53 | PC.NURSE ---
Addendum entered by Tiffanie Feliciano RN 12/04/23 18:54: Abdominal CT was ordered after pt took a shower and there was a plastic baggie found and Dr. Gardner notified. When RN asked pt about this pt stated I don't know what that could be from. Addendum entered by Tiffanie Feliciano RN 12/04/23 18:49: Dr. Gardner placed order for abdominal CT scan, pt immediately refused and stated that's not necessary. Original Note: Staff were told by another patient that they saw Romina using drugs while on the unit. When this RN approached her and asked he about it, pt became defensive and agitated and stated I would never do that, who would even say that. RN reached out to Dr. Gardner who placed an order for room search. When RN told pt that we would be conducting a room search, pt ran to her room and began rummaging through her trash. She handed this RN an empty box of tissues with two used syringes and a straw inside. Pt stated I had these inside me when I came in but I haven't used any drugs while I've been here. This is all I have. Upon further inspection, staff found another straw with powdered residue. Dr. Gardner was notified who stated pt would require supervised visits. RN relayed this information to pt who became visibly upset but verbalized understanding.
--- NOTE | 2023-12-04 20:08 | PC.NURSE ---
Staff were told by another patient that they saw Romina using drugs while on the unit. When this RN approached her and asked her about it, pt became defensive and agitated and stated I would never do that, who would even say that. RN reached out to Dr. Gardner who placed an order for room search. When RN told pt that we would be conducting a room search, pt ran to her room and began rummaging through her trash. She handed this RN an empty box of tissues with two used syringes and a straw inside. Pt stated I had these inside me when I came in but I haven't used any drugs while I've been here. This is all I have. Upon further inspection, staff found another straw with powdered residue in her bedside table. RN and [facility] changed pt?s sheets and removed trash from pt?s room. Pt?s mattress was flipped over and inspected. Pillow cases were changed. Dr. Gardner was notified who stated pt would require supervised visits. RN relayed this information to pt who became visibly upset but verbalized understanding.?Pt had a visitor at 1700. Visitor emptied his pockets inside out prior to arriving on the unit. Pt's visitation was monitored by staff. After the visit pt asked to shower. RN inspected the shower after pt was finished and there was an empty plastic baggie found on the shower floor. When RN asked pt about this, pt stated ?I don?t know what that could be from, it must have been from yesterday.? Dr. Gardner notified who placed an order for abdominal CT. Pt immediately refused CT and stated ?that?s not necessary.?? Per Dr. Gardner, pt was put on 1:[address] scan. When RN told pt this, pt reluctantly agreed to have it done. When pt was transported to CT, staff found a vape hidden in her pillow. Pt remains on 1:1 for safety.
[2023-12-04] MEDS: traZODone HCL 50 MG TABLET PO (20:09)
[2023-12-04 20:56] VITALS: BP 119/63; PULSE 70; TEMP 36.7; O2SAT 98
[2023-12-05 07:00] VITALS: BMI 22.0
[2023-12-05 08:00] VITALS: BP 85/47; PULSE 61; RESP 16; TEMP 37.1; O2SAT 98
[2023-12-05] MEDS: methADONE HCl 20 MG/2 ML ORAL.CONC 60 MG PO (08:06)
[2023-12-05 08:53] VITALS: BP 96/53; PULSE 68
[2023-12-05] MEDS: LORazepam 0.5 MG TABLET PO (08:57)
[2023-12-05] MEDS: Nicotine Polacrilex 2 MG GUM 4 MG BUCCAL (09:23)
== END 2023-12-05 10:45 | disposition home or self-care (01) | DRG 773 ==
LOC: HO.ED 08:18 → HO.PADLT16 11:10
PROVIDERS: Admitting Provider Psychiatry & Neurology Psychiatry; Emergency Provider Internal Medicine; Visit Provider Psychiatry & Neurology Psychiatry
DX: F19.959 Other psychoactive substance use, unspecified with psychoactive substance-induced psychotic disorder, unspecified (principal); F11.20 Opioid dependence, uncomplicated; R45.851 Suicidal ideations; F14.93 Cocaine use, unspecified with withdrawal; F17.210 Nicotine dependence, cigarettes, uncomplicated; Z71.6 Tobacco abuse counseling; Z79.899 Other long term (current) drug therapy
CPT/HCPCS: 36415; 74176; 80048; 80061; 80307; 81003; 81025; 82607; 82746; 83036; 84439; 84443; 85025; 99285; S9485

== ENCOUNTER → 2023-11-29 11:04 | Outpatient (BNV) | payer OTHER, SELFPAY | PROVIDERS: Admitting Provider Psychiatry & Neurology Psychiatry; Emergency Provider Internal Medicine; Visit Provider Psychiatry & Neurology Psychiatry | DX: F19.10 Other psychoactive substance abuse, uncomplicated (principal) | CPT/HCPCS: 90792; 99231; 99232; 99239 ==